=== PATIENT | male | born 1945 | race Caucasian/White ===

== ENCOUNTER 2017-12-19 11:48 | Outpatient (CLI) | payer OTHER, SELFPAY ==
[2017-12-19 13:13] LABS: Anion Gap 7.9 mmol/L (3-11); BUN 17 mg/dL (7-18); CO2 29.1 mmol/L (21.0-32.0); CREATININE 1.01 mg/dL (0.70-1.30); Calcium 8.6 mg/dL (8.5-10.1); Chloride 103 mmol/L (98-107); Glucose 127 mg/dL (70-100); Potassium 4.8 mmol/L (3.5-5.1); Sodium 140 mmol/L (136-145)
[2017-12-19 13:26] LABS: Hemoglobin A1C 6.3 % (4.5-6.2)
== END 2017-12-19 11:49 ==
PROVIDERS: PCP Family Medicine; Visit Provider Family Medicine
DX: E11.9 Type 2 diabetes mellitus without complications (principal)
CPT/HCPCS: 36415; 80048; 83036

== ENCOUNTER 2018-02-02 15:18 | Emergency (ER) | payer MEDICARE, SELFPAY | END 2018-02-02 15:31 | LOC: ER 15:20 | PROVIDERS: Emergency Provider Family Medicine; PCP Family Medicine | DX: Z53.21 Procedure and treatment not carried out due to patient leaving prior to being seen by health care provider (principal) ==

== ENCOUNTER 2018-02-02 18:13 | Outpatient (REF) | payer OTHER, SELFPAY ==
--- NOTE | 2018-02-02 14:09 | SKI_PTH ---
PATIENT: Sai Jaramillo LOC: [facility] U#:[id number] AGE/SX: 72/M ROOM: RE02/02/[address]: Mayo Verdin DO : 1945 BED: DIS: 02/02/2018 SPEC #: [id number] RECD: 02/02/18 18:22 STATUS: NICOLAS REQ #: [id number] KRISSY: 02/02/18 14:[address]: aMyo Verdin DEPT: Surgical Specimen RECD BY: Rosalva Crowley ENTERED: 02/02/18 18:23 SP TYPE: TAWANDA THOMAS DR: Roman Burkett MD Tissues: 1 - SKIN BIOPSY(SHAVE/PUNCH) Procedures: SKIN LEVEL 4 Comments: [id number]
== END 2018-02-02 18:33 ==
LOC: LBN 18:13
PROVIDERS: PCP Family Medicine; Visit Provider Otolaryngology Otolaryngology/Facial Plastic Surgery
DX: C44.41 Basal cell carcinoma of skin of scalp and neck (principal)
CPT/HCPCS: 88305

== ENCOUNTER 2019-01-15 03:50 | Outpatient (CLI) | payer OTHER, SELFPAY ==
[2019-01-15 12:44] LABS: BUN 24 mg/dL (7-18); CREATININE 0.93 mg/dL (0.70-1.30); Calcium 8.4 mg/dL (8.5-10.1); Chloride 105 mmol/L (98-107); Glucose 132 mg/dL (70-100); Potassium 4.5 mmol/L (3.5-5.1); Sodium 140 mmol/L (136-145)
[2019-01-15 13:06] LABS: Hemoglobin A1C 6.6 % (4.5-6.2)
== END 2019-01-15 04:10 ==
PROVIDERS: PCP Family Medicine; Visit Provider Family Medicine
DX: I10 Essential (primary) hypertension (principal); E11.9 Type 2 diabetes mellitus without complications
CPT/HCPCS: 36415; 80048; 83036

== ENCOUNTER 2019-07-05 14:59 | Outpatient (CLI) | payer OTHER, SELFPAY ==
--- NOTE | 2019-07-05 14:45 | DI.RAD_ITS ---
EXAM: XR STANDING ALIGNMENT CLINICAL HISTORY: left knee pain TECHNIQUE: COMPARISON: BONE LENGTH from 08/24/2015 FINDINGS: AP views of the lower extremities were obtained for leg length determination. There slight degenerat genie changes of both hips. There is a total knee joint replacement position the right. There are sev ere degenerative changes involving left knee most prominent involving lateral tibiofemoral joint. IMPRESSION:
--- NOTE | 2019-07-05 14:45 | DI.RAD_ITS ---
EXAM: XR KNEE LT 2V AP,LAT CLINICAL HISTORY: left knee pain TECHNIQUE: COMPARISON: RIGHT KNEE LIMITED 1 OR 2 VIEW from 08/12/2016 FINDINGS: Two views were obtained. There appears to be significant narrowing the cartilaginous joint space of the lateral tibiofemoral joint. There are prominent marginal osteophytes of all 3 joints knee. No o ther significant bony abnormality seen. There is a probable small knee joint effusion. IMPRESSION: DJD most prominent involving lateral tibiofemoral joint.
== END 2019-07-05 15:19 ==
PROVIDERS: PCP Family Medicine; Referring Provider Family Medicine; Visit Provider Student in an Organized Health Care Education/Training Program
DX: M25.562 Pain in left knee (principal); M16.12 Unilateral primary osteoarthritis, left hip; Z96.651 Presence of right artificial knee joint; M17.12 Unilateral primary osteoarthritis, left knee; E11.9 Type 2 diabetes mellitus without complications
CPT/HCPCS: 99213; 73560; 77073

== ENCOUNTER 2019-10-11 02:22 | Outpatient (CLI) | payer OTHER, SELFPAY ==
[2019-10-11 10:58] LABS: HCT 45.8 % (40.0-50.0); HGB 15.9 g/dL (13.5-17.5); Mean Corp. HGB Concentration 34.7 g/dL (32.0-36.0); Mean Corpuscular Hemoglobin 31.6 pg (27.0-33.0); Mean Corpuscular Volume 91.1 fL (80-95); Mean Platelet Volume 9.3 fL (8.0-11.0); Platelet Count 310 x1000/uL (130-400); RBC 5.03 m/cumm (4.50-6.00); RBC Distribution Width 13.2 % (11.8-14.1); White Blood Cell Count 7.76 k/cumm (4.4-10.8)
[2019-10-11 11:17] LABS: Anion Gap 8.8 mmol/L (3-11); BUN 27 mg/dL (7-18); CO2 27.2 mmol/L (21.0-32.0); CREATININE 0.95 mg/dL (0.70-1.30); Calcium 8.6 mg/dL (8.5-10.1); Chloride 101 mmol/L (98-107); Glucose 153 mg/dL (74-106); Potassium 4.4 mmol/L (3.5-5.1); Sodium 137 mmol/L (136-145)
[2019-10-12 18:41] LABS: COVID-19 RT-PCR UVMMC Result Negative (Negative)
== END 2019-10-11 02:42 ==
PROVIDERS: Physician Assistant; PCP Family Medicine; Visit Provider Student in an Organized Health Care Education/Training Program
DX: M25.562 Pain in left knee (principal); M17.12 Unilateral primary osteoarthritis, left knee; E11.9 Type 2 diabetes mellitus without complications; Z11.59 Encounter for screening for other viral diseases; Z01.818 Encounter for other preprocedural examination; Z01.812 Encounter for preprocedural laboratory examination
CPT/HCPCS: 36415; 80048; 85027; U0003; 83036

== ENCOUNTER → 2019-10-13 07:58 | Outpatient (BNVA) | payer OTHER, SELFPAY | PROVIDERS: PCP Family Medicine; Referring Provider Family Medicine; Visit Provider Student in an Organized Health Care Education/Training Program | DX: R69 Illness, unspecified (principal) ==

== ENCOUNTER 2019-10-13 08:47 | Observation (INO) | payer OTHER, SELFPAY ==
[2019-10-13] VITALS (11 sets, daily range): BP systolic 108–158; BP diastolic 58–84; PULSE 53–61; RESP 11–19; TEMP 35.8–36.5; O2SAT 95–100
[2019-10-13] MEDS: Acetaminophen 500 MG TAB 1000 MG PO ×3 (09:35→19:19)
[2019-10-13] MEDS: Celecoxib 200 MG CAP 400 MG PO (09:36)
[2019-10-13] MEDS: Gabapentin 300 MG CAP PO ×2 (09:36→22:13)
[2019-10-13] MEDS: Lactated Ringers 1,000 ML 80 ML IV ×2 (09:45→15:45)
[2019-10-13] MEDS: ceFAZolin 2 GM/50 ML BAG IVPB (10:51)
[2019-10-13] MEDS: Normal Saline 20 ML VIAL (11:29)
[2019-10-13] MEDS: Bupivacaine 0.25% Pres-Free 30 ML VIAL (11:29)
[2019-10-13] MEDS: Ketorolac 30 MG/ML VIAL (11:29)
--- NOTE | 2019-10-13 13:05 | ROE_ITS ---
Date of service: 10/13/19 Time of Service: 13:06 Operative Note Operative Note DATE OF PROCEDURE: 10/13/19 PRE-OP DIAGNOSIS: Left Knee Osteoarthritis POST-OP DIAGNOSIS: same PROCEDURE: Left Total Knee Replacement SURGEON: Yo Orozco SCHEDULE ANALYST: Vin Springer ANESTHESIA: regional and spinal ESTIMATED BLOOD LOSS: 150 PATHOLOGY: none sent TOURNIQUET TIME: 34 COMPLICATIONS: None Patient was transported to: PACU Patient's condition: stable Implants: 1. Depuy Attune Cruciate Retaining Femoral Component, Size 7 2. Depuy Attune Rotating Platform Tibial Component, Size 7 3. Depuy Attune 7x8mm CR,RP Poly 4. Depuy Attune Patellar Component, Size 38mm Indications: I have seen Sai in clinic for symptoms of knee arthritis, confirmed with radiographic findings. Sai has exhausted nonoperative methods and was having significant limitations in daily function and desired better function and less pain. I discussed the technical details of a knee replacement. I explained the risks of the procedure to include, but not limited to, bleeding, infection, pain, stiffness, fracture, damage to nerves and vessels, damage to muscles and tendons, loosening, need for repeat procedure, blood clot and cardiopulmonary demise. Despite these risks, Sai elected to proceed. Findings: There was significant signs of arthritis throughout the knee involving both lateral and medial compartments. Procedure Description: Sai was greeted in the preoperative holding area where the correct side was identified and marked. The consent was reviewed with the patient and signed. The history and physical was updated. All questions were answered. Preoperative mediacations were administered: Acetaminophen 1000mg, Celebrex 400mg, and Gabapentin 300mg. An adductor canal block was then administered by the anesthesia team in the PACU. Sai was taken back to the operating room. A spinal anesthestic was then administered. The patient was placed into the supine position on the operating room table. A nonsterile tourniquet was placed high onto the leg but only used for cementing. Posts were placed for positioning during the procedure. All bony prominences were well padded. Prophylactic antibiotics in the form of Cefazolin were administered. 1g of Tranxemic Acid was given intravenously within 30 minutes of incision. The left leg was then prepped with Chloraprep and draped in a standard fashion with impervious stockinette and extremity drape. A second prep with Chloraprep was performed prior to placing Ioband. A timeout to confirm correct identity, side and site, procedure, allergies, anesthesia, and medical concerns was performed. With the knee in some flexion, a midline incision was made overlying the knee. Full thickness skin flaps were raised once the extensor mechanism was encountered. These were raised medially and laterally. Any bleeding was controlled with electrocautery. Once the extensor mechanism was fully exposed, a medial parapatellar arthrotomy was performed in a flexed position. All bleeding from the arthrotomy and the geniculate arteries was coagulated. A medial subperiosteal peel was performed with electrocautery to the midcoronal plane. The fat pad was removed while keeping the patellar tendon protected. The anterior distal femur synovium was removed for later visualization. The ACL and PCL were resected and the anterior horn of the lateral meniscus was transected. The knee was then flexed with the patella everted. Large osteophytes from the tibia were removed. Large osteophytes from the femur were removed. Using a step drill, and based on preoperative templating, the femoral canal was entered. This was done with a step drill without any difficulty. The intramedullary distal femoral cut guide was inserted, set to a 4 degree valgus cut and 9mm cut thickness. There was some hypoplasia of the lateral femoral condyle and any remnant cartilage of the medial femoral condyle was removed for appropriate thickness. The distal femoral cut guide was then held in position and pinned. With the soft tissues protected, the distal cut was performed. This was passed over a few times to ensure a planar cut. I then turned attention to the tibia. The extramedullary guide was placed onto the leg. The distal aspect was slid medial to adjust for position of center of ankle and stay in line with shaft of the tibia. Approximately 7 degrees of posterior slope was kept in the proximal cutting guide. The center of the guide was aligned with the PCL. The stylus was used to assess cut thickness. The cut was balanced and set for 7mm. This was then held in position and pinned into place with 2 additional pins and a cross pin for stability. The medial and lateral collateral ligaments were protected and the cut was performed. With this completed, it was assessed and noted to be of appropriate dimensions. The guide was removed. A spacer block was inserted and the knee was brought into extension. The 8mm spacer block provided full extension, without hyperextension and with stability of both the medial and lateral collateral ligaments was assessed. The pins from the femur and the tibia were then removed. The distal femur was then sized. The anterior stylus was placed onto the lateral ridge of the anterior femur. This indicated a size 7 femur. The external rotation of the guide was adjusted to 3 degrees to match the epicondylar axis, perpendicular to [place]?s line. The 4-in-1 cutting guide was the placed. The posterior medial femur cut was evaluated and appeared of good thickness. The spacer block was inserted underneath the cutting guide and stability was confirmed in 90 degrees of flexion. An danyelle wing was used to confirm appropriate position of the anterior cut to avoid notching. This cutting guide was ensured to be flush on the cut surface and then pinned into place with headed pins. While protecting the soft tissues, quad tendon, and collateral ligaments, the anterior and posterior cuts were performed with a saw. The central two pins were removed and the posterior and anterior chamfers were cut next. The notch-cutting guide was placed. This was pinned to lateralize the femoral component as much as possible while keeping it flush on the cut surface. This was then pinned into position. A reciprocating saw was used to make the small notch cut. A trial CR femoral component was then inserted, impacted down to the cut surfaces, and the lug holes were drilled. A provisional trial tibial component was placed and the knee was brought through range of motion. There was noted to be excellent extension and flexion. There was no significant instability. The patella was tracking without thumbs. The tibial cut surface was fully exposed. The medial and lateral menisci were removed. The tibia was then sized as a 7. The tibia had been previously marked during trialing to correspond to the center of the tibial component to help with rotation. The trial was aligned to this vin, approximately rotated to the medial 1/3rd of the tibial tubercle. The trial was pinned into place. The tibia was prepared with a reamer and a keel punch. The knee was then brought into extension and the patella was measured as 30mm. Using the patellar clamp and cut guide, this was resected to a flat surface with at least 13mm of thickness remaining. The size 38 patella fit the best. This was oriented and then clamped into position. The lugs were drilled. The trial components were removed. The final components, except for the polyethylene were opened on the back table. The periosteal and capsular tissues, especially posteriorly, around the knee were then systematically injected with a periarticular cocktail consisting of 50cc 0.25% Marcaine, 30mg Ketorolac, 20cc of Exparal and 50cc of injectable saline. The tourniquet was then inflated to 275mmHg. The knee was thoroughly irrigated with a pulse lavage and dried. On the back table, with the implants opened, the cement was mixed. 2 batches of antibiotic laden cement were prepared with vacuum assistance. After the cement was ready it was placed on to the back side of the tibial component. A small amount was placed onto the posterior flange of the femur. Cement was manual pressurized and impregnated into the cut surface of the tibia. The tibial component was then inserted into the cut surface and impacted into position. Excess cement was removed and the component was reimpacted. Again, excess cement was removed and our attention was then turned to the femur. The femoral cut surface was once again dried and cement was manually impacted into the cut surface. The femoral component was lined with the lug holes and impacted. Excess cement was removed. It was ensured to be down against the cut surface. The trial polyethylene was then inserted and the leg was brought out into full extension for the duration of the cement curing process, approximately 15min. Cement was lastly manually impacted into the cut surface of the patella and the patellar button was clamped into position and held. During this process attention was turned to the gutters of the knee and for all interfaces for any excess cement. While the cement was hardening, the knee was irrigated with Irrisept chlorhexadine solution. It was allowed to sit in the knee for 3 minutes. After the cement had finally cured, approximately 15min, the clamp was removed from the patella and the knee was taken through range of motion. A size 8mm polyethylene component provided the best range of motion and stability with less than 2mm gapping with medial and lateral stress and full extension without significant hyperextension. The patella was tracking with a no-thumbs technique. The trial poly was removed and once again the knee was checked for any loose, excess, or errant cement. The poly component was then inserted into position after cleaning and drying the tibial tray. The capsule was then reapproximated with a No. 1 Vicryl at multiple locations. The capsule was finally closed with a No. 2 Stratafix, barbed suture. The tourniquet was then released and the arthrotomy appeared watertight without significant bleeding. The second dosing of 1g TXA was started. Deep tissues were then reapproximated with 0 Vicryl and 2-0 Vicryl. The skin was closed with a running 3-0 Monocryl in a subcuticular fashion. This was reinforced with skin glue. A Mepilex silver dressing was applied along with a [id number] STEVE wrap. A CryoCuff was applied. Sai was transferred to the hospital bed without difficulty an suffering no apparent complication. Sai has a good prognosis. Physical therapy will start today and without restrictions, weight-bearing as tolerated. Aspirin 81mg BID will be used for DVT prophylaxis.
--- NOTE | 2019-10-13 14:10 | IN_ITS ---
Date of service: 10/13/19 PT Notes Visit Reasons: Left Knee DJD Physical Therapy Inpatient Initial Evaluation Date: 10/13/2019 Referring Doctor: Yo Orozco MD PT Orders: PT CONSULT: Status post Ortho surgery. Status post left TKA Precautions: Fall. Standard. WBAT on left LE. Patient Profile/Admitting Diagnosis: Sai is a 73-year-old male with primary unilateral osteoarthritis of the left knee and is status post left total knee arthroplasty on postoperative day 0. PMHX: Medical History Malignant melanoma of skin (Inactive 10/09/08) Osteoarthritis Prediabetes Primary osteoarthritis of left knee (Chronic) Primary osteoarthritis of right knee (Inactive 01/26/15) Status post knee replacement Smoker (Inactive) Surgical History S/P total knee arthroplasty (Inactive) Status post vasectomy (Inactive) Vasectomy Social History/Home Situation: Patient lives with in a ranch style home with 3 steps to enter through the garage with a railing on one side. Independent with all aspects of ADLs prior to surgery. Equipment Owned/DME: Front wheeled walker Subjective: Patient states that his will be a very good support for him once he goes home to recover. He expresses that he believes he is going to do well at home as long as he has a front-wheeled walker to hold onto. He reports 1/10 pain in the left knee especially with weight bearing. He denies headache, chest pain, and dizziness throughout PT session. He states he has not fallen in the past 12 months. He stresses that he had his right knee done 4 years ago and is familiar with the surgical protocol. Objective: General Observation: IV in the left UE. TEDS on right leg. Anti-thromboembolic pump on the right leg. Maximiliano wraps on left knee. Mental Status: Alert and oriented x4 Pain: 1/10 in the right knee Vital Signs: Within normal limits as closely monitored by nursing staff during and after PT session. Normal ROM: Right Upper Extremity: Shoulder Flexion WFL. Shoulder abduction WFL. Elbow flexion WFL. Wrist flexion WFL. Opening and closing of hand WFL. Left Upper Extremity: Shoulder Flexion WFL. Shoulder abduction WFL. Elbow flexion WFL. Wrist flexion WFL. Opening and closing of hand WFL. Right Lower Extremity: Hip flexion WFL. Hip abduction WFL. Knee flexion WFL. Ankle dorsiflexion WFL. Ankle plantarflexion WFL. Left Lower Extremity: Hip flexion WFL. Hip abduction WFL. Knee flexion -30 degrees to 100 degrees. Knee extension -30 degrees. Ankle dorsiflexion WFL. Ankle plantarflexion WFL. Patient able to do 10 SLRs to 45 degrees on the left side without undue difficulty. Strength: Right Upper Extremity: Shoulder flexors 5/5. Shoulder abductors 5/5. Elbow flexors 5/5. Elbow extensors 5/5. Environmental Remediation Specialist strong. Left Upper Extremity: Shoulder flexors 5/5. Shoulder abductors 5/5. Elbow flexors 5/5. Elbow extensors 5/5. Environmental Remediation Specialist strong. Right Lower Extremity: Hip flexors 5/5. Hip abductors 5/5. Knee flexors 5/5. Knee extensors 5/5. Ankle dorsiflexors 5/5. Ankle plantarflexors 5/5. Left Lower Extremity:Hip flexors 4/5. Hip abductors 4-/5. Knee flexors 3-/5. Knee extensors 3-/5. Ankle dorsiflexors 5/5. Ankle plantarflexors 5/5. Sensation: Intact as to pain and pressure on bilateral lower extremities. Bed Mobility/Transfers: Supine to sit modified independent using BUE for support Sit to supine modified independent using BUE for support Sit to stand supervision with minimal verbal cueing for hand placement, requires use of front wheel walker Stand to sit supervision with minimal verbal cueing for hand placement Bed to chair supervision with minimal verbal cueing for hand placement, requires use of front wheel walker Chair to bed supervision with minimal verbal cueing for hand placement, requires use of front wheel walker Gait: Patient tolerated level surface ambulation of 200 feet + 70 feet using front wheeled walker with standby assist. Swing through gait pattern seen. Patient also tolerated up-and-down 6 x 4-inch steps and four 6-inch steps while holding onto one rail with standby assist with tolerable pain level in the left knee. Balance: Static Sitting: Normal Dynamic Sitting: Normal Static Standing: Fair Dynamic Standing: Fair Special Tests: Mobility Limitations Standardized Measure [facility]-PAC 6 clicks Basic Mobility Inpatient Short Form: Raw Score: 23 CMS Score: 11% deficit Informed Consent/Education: Patient instructed in purpose of PT consult and plan of care. Assessment: Patient demonstrates a need for a front wheel walker for all mobility ADL performance, impairment in balance, difficulty with walking unassisted, and range of motion deficits resulting from postoperative status. He however does not need physical assist for all mobility ADL performance and will have the support of his at all times. Patient is motivated to return to prior level of function and is confident to return home today when cleared by orthopedic surgeon. Patient presents with clinical signs and symptoms consistent with current/admitting diagnoses that have resulted to mobility limitations, gait instability, generalized weakness, and impairment of motor control as demonstrated by the following impairment level findings: 1. Decreased strength to left knee major muscle groups 2. Impaired standing balance 3. Impaired activity tolerance 4. Limitation of joint range of motion in left knee Impairments are contributing to the following functional limitations: 1. Inability to safely ambulate without assistive device and physical assistance 2. Increase completion time for mobility ADL performance 3. Increased fall risk 4. Inability to negotiate steps alone safely Patient is assessed as a 41960 moderate complexity based on the following: History: 73-year-old with impairment level findings, functional limitations, and past medical history as indicated above Examination: Demonstrable impairment in strength, balance, and mobility level with underlying impairments and functional limitations as documented above Presentation:Evolving Decision Makin complexity Goals: Goals X1 day 1. Supine-Sit independent 2. Sit-Supine independent 3. Sit-Stand independent 4. Stand-Sit independent 5. Bed-Chair independent 6. Chair-Bed independent 7. Supervision gait on level surface with use of least restrictive device for at least 300 feet without report of pain nor dyspnea 8. Supervision stair negotiation while holding onto bilateral rails for at least 10 steps without report of pain nor dyspnea 9. Independent with home exercise program 10. Good static and dynamic standing balance/tolerance Plan of Care/Treatment Plan: 1-2x/day, x day. Plan of care has been reviewed with the NEWS LIBRARY DIRECTOR providing the service under Physical Therapy direction. Initiate Physical Therapy intervention for strengthening, bed mobility, transfers, gait, stairs, balance training, use of assistive device. PT Intervention: Session today consisted of initial physical therapy evaluation and education/training on safe strategies for mobility ADL performance using the front wheeled walker. DISCHARGE RECOMMENDATIONS: Home when medically cleared by orthopedic surgeon. No equipment needs at this time. TREATMENT CODE/TIME: 96396 x 30 minutes beginning at 2:15 PM, [id number] x 28 minutes beginning at 15:01 PM. Thank you very much for this referral. Edwina Mcclure PT, DPT, CLT [facility] [place], [place]
--- NOTE | 2019-10-13 14:26 | NUR.NOTE ---
Nursing Note: Pt A&Ox3, VSS, denies pain. CMST's in LLE WNL. feet cool, aware. Palpable pulse. Pt states he hungry. Coffee given, no void yet. Will continue to monitor.
[2019-10-13] MEDS: ceFAZolin 1 GM/50 ML BAG IVPB (17:51)
[2019-10-13] MEDS: Omeprazole 10 MG CAPCR PO (19:20)
[2019-10-13] MEDS: Celecoxib 200 MG CAP PO (19:20)
[2019-10-13] MEDS: Aspirin E.C. 81 MG TABEC PO (19:20)
[2019-10-14 00:45] VITALS: BP 152/81; PULSE 58; RESP 12; TEMP 35.3; O2SAT 96
[2019-10-14 00:46] VITALS: BP 144/81
[2019-10-14] MEDS: ceFAZolin 1 GM/50 ML BAG IVPB ×2 (01:01→10:15)
[2019-10-14] MEDS: Lactated Ringers 1,000 ML 80 ML IV (03:20)
[2019-10-14 03:27] VITALS: BP 138/76; PULSE 60; RESP 14; TEMP 35.8; O2SAT 97
[2019-10-14 07:34] VITALS: BP 138/75; PULSE 69; RESP 17; TEMP 36.8; O2SAT 96
--- NOTE | 2019-10-14 07:38 | W.PM.DS.N ---
Date of service: 10/14/19 Time of Service: 07:37 DS: Diagnosis Discharge Diagnosis (1) Primary osteoarthritis of left knee: Status: Chronic Discharge Plan Disposition Patient Disposition: HOME Condition: Good Discharge Details Reason For Visit: Left Knee DJD Admit Date/Time: 10/13/19 08:47 Admit Provider: Yo Orozco Attending Provider: Yo Orozco Primary Care Provider: Roman Burkett Hospital Course Hospital Course: Patient was admitted to the medical/surgical floor following the procedure. The surgery was tolerated well without any notable medical, surgical, or anesthetic complications. Mobilization began postoperatively. He was voiding spontaneously. Vitals were stable. Physical therapy worked with the patient and was cleared for discharge home. No acute medical issues. Pain was controlled on oral regimen. Home Meds and New Rx's Prescriptions: New celecoxib 200 mg capsule 200 mg PO BID PRN (Reason: pain) Qty: 60 RF: 1 aspirin 81 mg tablet,delayed release (DR/EC) 81 mg PO BID Qty: 60 RF: 0 acetaminophen 500 mg tablet 1,000 mg PO Q8H PRN (Reason: pain) Qty: 90 RF: 3 gabapentin 300 mg capsule 300 mg PO QHS Qty: 7 RF: 0 oxycodone 5 mg tablet 5 mg PO Q4H Qty: 15 RF: 0 Continued multivitamin 1 EACH tablet 1 ea PO DAILY RF: 0 ascorbic acid (vitamin C) 250 MG tablet 750 mg PO DAILY RF: 0 garlic 1 EACH capsule 1 ea PO DAILY RF: 0 omeprazole magnesium [Prilosec OTC] 20 MG tablet,delayed release (DR/EC) 0.5 tab PO QPM Qty: 90 RF: 4 Discontinued aspirin 81 MG tablet,delayed release (DR/EC) 81 mg PO DAILY RF: 0 naproxen sodium [Aleve] 220 mg capsule 220 mg PO DAILY RF: 0 Discharge Instructions Additional Instructions: Dr. Orozco?s Total Knee Discharge Instructions Activity: The most important activity is to walk. You should try to take short walks a few times a day. It is important that when resting you work on keeping the knee straight. Avoid putting a pillow behind the knee as this will encourage flexion. Work on range of motion exercises as provided by Physical Therapy and the preoperative booklet. - Start outpatient physical therapy within 2 weeks. - You should wear the ROMULO hose on both legs for 2 weeks. Dressing: Keep the surgical dressing (Mepilex) in place for at least one week. If you went home on the surgical day, you should remove the STEVE wrap on the second day and then apply the ROMULO hose. The dressing may get wet after 3 days but avoid soaking the dressing. If it gets wet, just lightly pat dry. Most patient prefer to cover with ClingWrap or Saran Wrap to keep the dressing dry. After the first week, the dressing may be removed and replaced with light gauze and tape or nothing. Medications: - You should take Tylenol and anti-inflammatory Celebrex as your primary pain control medications - You have been prescribed a stronger pain medication Oxycodone for breakthrough pain, take as needed as prescribed. - You should continue to take your Omeprazole to help reduce stomach acid and reflux. - You will be taking Aspirin 81mg twice a day for DVT prevention unless instructed otherwise. - If you have constipation you should take Colace or Miralax (both [id number]). It takes most people 3-4 days to have a bowel movement. Follow-up: 2 weeks. You should also call physical therapy to work on scheduling outpatient therapy sessions which can begin at 2 weeks. If you have any acute concerns or questions, please do not hesitate to contact the office at [phone]. You may contact Dr. Orozco with any questions after hours through the hospital at [phone] or on his cell phone at [phone]. Referrals: Yo Orozco MD [ [facility] STAFF PHYSICIAN] - 10/29/19 11:30 am Activity:: Activity as Tolerated Equipment/Supplies:: Walker Diet:: As Tolerated Discharge Orders Discharge Orders: Discharge Order (Routine); Ordered 10/14/19 Ordered By: Yo Oorzco DS: Summary Status at Discharge Functional status at discharge: uses cane/walker Overall status at discharge: patient is progressing back to baseline Mental Status: mental status grossly normal Speech and Movement: speech and movement normal Mood: congruent mood Affect: normal affect Exam Narrative Exam Narrative: Resting in the hospital bed. Dressing is clean dry and intact. He is holding the knee in about 10 degrees of flexion. Passively I can get him to about 5 degrees of extension and he flexes to about 80 degrees. He is able to actively contract the quad and perform a straight leg raise although with a lag. Sensation intact light touch over the deep and superficial peroneal nerves and tibial nerve. The foot is warm and well-perfused with capillary refill less than 2 seconds. Psych Mental Status: mental status grossly normal Speech and Movement: speech and movement normal Mood: congruent mood Affect: normal affect DS: Data Vitals/I&O Vitals and I&O: Vital Signs Temperature 36.3 C L 10/13/19 13:44 Pulse 59 L 10/13/19 13:44 Pulse Rhythm Regular 10/13/19 09:08 Respiratory Rate 16 10/13/19 13:44 Respiratory Effort 10/13/19 09:08 Respiratory Depth Normal 10/13/19 09:08 Blood Pressure 122/65 10/13/19 13:44 Pulse Oximetry 100 10/13/19 13:44 Oxygen Delivery Method Room Air 10/13/19 13:44 Oxygen Flow Rate 0 10/13/19 09:08 Pain Level 0 10/13/19 13:44 Intake & Output 10/12/19 10/13/19 10/13/19 23:59 11:59 23:59 Intake Total 110 / 1370 1260 / 1370 Output Total 150 / 150 Balance 110 / 1220 1110 / 1220 Weight 101.6 kg Intake: IV 110 / 970 860 / 970 Oral 400 / 400 Output: Estimated Blood Loss 150 / 150 Other: Emesis Description None PFSH Medical History Malignant melanoma of skin (Inactive 10/09/08) Osteoarthritis Prediabetes Primary osteoarthritis of left knee (Chronic) s/p TKA (10/13/19) Primary osteoarthritis of right knee (Inactive 01/26/15) Status post knee replacement Smoker (Inactive) Surgical History S/P total knee arthroplasty (Inactive) Status post vasectomy (Inactive) Vasectomy Family History Mother , 80 Stroke Father , 64 Diabetes Sister Multiple myeloma Maternal Grandfather , 56 Essential hypertension Heart disease Paternal Grandfather , 50 Diabetes Maternal Grandmother , 99 Heart disease Paternal Grandmother , 70+ Diabetes Dementia Daughter No problems noted. Daughter No problems noted. Social History Smoking/Tobacco Use Status: Current-Occasional Alcohol Intake: current Alcohol Intake frequency: a few times a week Alcohol type: beer and wine Drug use: Never Substance use type: does not use Caregiver/Support person: No Household members: spouse Communication Needs: None Pets and animals: No Sexually active: Yes Current gender identity: male What is your relationship status?: How often do you talk on the phone with friends or family?: once per week How often do you get together with friends or relatives?: once per week How often do you attend shinto or lutheran services?: decline to answer Do you belong to any clubs or organized social groups?: yes Panel score (0-1 are the most socially isolated patients): 2 What type of physical activity do you participate in: swimming Duration: 45-60 minutes/day Frequency: 3-4 times per week Patti/Adventist: Worship Special patti needs: No Seatbelt use: always Drive intox or ride w/intox transport truck driver: No Do you feel safe at home: Yes Do you feel safe in your relationship?: Yes
[2019-10-14] MEDS: Multivitamin TAB 1 TAB PO (08:01)
[2019-10-14] MEDS: Celecoxib 200 MG CAP PO (08:01)
[2019-10-14] MEDS: Acetaminophen 500 MG TAB 1000 MG PO (08:01)
[2019-10-14] MEDS: Aspirin E.C. 81 MG TABEC PO (08:01)
[2019-10-14] MEDS: Ascorbic Acid 500 MG TAB 750 MG PO (08:01)
--- NOTE | 2019-10-14 09:16 | INDS_ITS ---
Date of service: 10/14/19 Time of Service: 08:37 PT Notes Visit Reasons: Left Knee DJD Physical Therapy Inpatient Discharge Summary Date: 10/14/2019 Dates of service: 10/13/2019 and 10/14/2019 Referring Doctor: Yo Orozco MD PT Orders: PT CONSULT: Status post Ortho surgery. Status post left TKA Precautions: Fall. Standard. WBAT on left LE. Patient Profile/Admitting Diagnosis: Sai is a 73-year-old male with primary unilateral osteoarthritis of the left knee and is status post left total knee arthroplasty on postoperative day 1. PMHX: Medical History Malignant melanoma of skin (Inactive 10/09/08) Osteoarthritis Prediabetes Primary osteoarthritis of left knee (Chronic) Primary osteoarthritis of right knee (Inactive 01/26/15) Status post knee replacement Smoker (Inactive) Surgical History S/P total knee arthroplasty (Inactive) Status post vasectomy (Inactive) Vasectomy Social History/Home Situation: Patient lives with in a ranch style home with 3 steps to enter through the garage with a railing on one side. Independent with all aspects of ADLs prior to surgery. Equipment Owned/DME: Front wheeled walker Subjective: Objective: General Observation: IV in the left UE. TEDS on right leg. Anti-thromboembolic pump on the right leg. Maximiliano wraps on left knee. Mental Status: Alert and oriented x4 Pain: 1/10 in the right knee ROM: Right Upper Extremity: Shoulder Flexion WFL. Shoulder abduction WFL. Elbow flexion WFL. Wrist flexion WFL. Opening and closing of hand WFL. Left Upper Extremity: Shoulder Flexion WFL. Shoulder abduction WFL. Elbow flexion WFL. Wrist flexion WFL. Opening and closing of hand WFL. Right Lower Extremity: Hip flexion WFL. Hip abduction WFL. Knee flexion WFL. Ankle dorsiflexion WFL. Ankle plantarflexion WFL. Left Lower Extremity: Hip flexion WFL. Hip abduction WFL. Knee flexion -20 degrees to 100 degrees. Knee extension -30 degrees. Ankle dorsiflexion WFL. Ankle plantarflexion WFL. Patient able to do 10 SLRs to 45 degrees on the left side without undue difficulty. Strength: Right Upper Extremity: Shoulder flexors 5/5. Shoulder abductors 5/5. Elbow flexors 5/5. Elbow extensors 5/5. 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 Left Upper Extremity: Shoulder flexors 5/5. Shoulder abductors 5/5. Elbow flexors 5/5. Elbow extensors 5/5. 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 Right Lower Extremity: Hip flexors 5/5. Hip abductors 5/5. Knee flexors 5/5. Knee extensors 5/5. Ankle dorsiflexors 5/5. Ankle plantarflexors 5/5. Left Lower Extremity:Hip flexors 4/5. Hip abductors 4-/5. Knee flexors 3-/5. Knee extensors 3-/5. Ankle dorsiflexors 5/5. Ankle plantarflexors 5/5. Sensation: Intact as to pain and pressure on bilateral lower extremities. Bed Mobility/Transfers: Supine to sit modified independent using BUE for support Sit to supine modified independent using BUE for support Sit to stand modified independent, requires use of front wheel walker Stand to sit modified independent, requires use of front wheel walker Bed to chair modified independent, requires use of front wheel walker Chair to bed modified independent, requires use of front wheel walker Gait: Patient tolerated level surface ambulation of 520 feet + 70 feet using front wheeled walker with supervision. Swing through gait pattern seen. Step height increase. Patient also tolerated up-and-down 12 x 4-inch steps and 8 x 6-inch steps while holding onto one rail with supervision with tolerable pain level in the left knee. THERA EX: Patient tolerated seated level exercises consisting of long arc quads x10 and seated marches x10 followed by standing level exercises consisting of bilateral heel raises x10 help provide 5 pounds each time and anytime marches x10 without undue difficulty with minimal discomfort on the left knee. Cryo/Cuff replaced on left knee to minimize post exercise soreness. Balance: Static Sitting: Normal Dynamic Sitting: Normal Static Standing: Fair Dynamic Standing: Fair Assessment: Patient demonstrates a need for a front wheel walker for all mobility ADL performance, impairment in balance, difficulty with walking unassisted, and range of motion deficits resulting from postoperative status. He however does not need physical assist for all mobility ADL performance and will have the support of his at all times. Patient has been provided with a written and illustrated list of exercises that he can do while recovering at home. Patient continues to present with clinical signs and symptoms consistent with current/admitting diagnoses that have resulted to mobility limitations, gait instability, generalized weakness, and impairment of motor control as demonstrated by the following impairment level findings: 1. Decreased strength to left knee major muscle groups 2. Impaired standing balance 3. Impaired activity tolerance 4. Limitation of joint range of motion in left knee with residual stiffness Impairments continue to contribute to the following functional limitations: 1. Inability to safely ambulate without assistive device and physical assistance 2. Increase completion time for mobility ADL performance Goals: Goals X1 day 1. Supine-Sit independent MET 2. Sit-Supine independent MET 3. Sit-Stand independent MET 4. Stand-Sit independent MET 5. Bed-Chair independent MET 6. Chair-Bed independent MET 7. Supervision gait on level surface with use of least restrictive device for at least 300 feet without report of pain nor dyspnea MET 8. Supervision stair negotiation while holding onto bilateral rails for at least 10 steps without report of pain nor dyspnea MET 9. Independent with home exercise program MET 10. Good static and dynamic standing balance/tolerance MET DISCHARGE RECOMMENDATIONS: Home when medically cleared by orthopedic surgeon. No equipment needs at this time. Patient needs current status per orthopedic surgeon recommendation. TREATMENT CODE/TIME: 74189 x15 minutes, 9711 0 x 15 minutes, beginning at 8:37 AM. Thank you very much for this referral. Edwina Mcclure PT, DPT, CLT [facility] [place], [place]
--- NOTE | 2019-10-14 15:07 | CHAPLAIN ---
Sai was in the recliner when I visited. He told me about his surgery. This is his second knee surgery. He was raised Druze and then attended Shinto Churches. He has a sister who is a Yazidism. His attended a [employer]. 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 Sai easily engaged in a conversation, shared some personal history and talked about his home in [place].
== END 2019-10-14 12:26 | disposition home or self-care (01) ==
LOC: PDS 13:35 → MS 13:36
PROVIDERS: Admitting Provider Student in an Organized Health Care Education/Training Program; PCP Family Medicine; Visit Provider Student in an Organized Health Care Education/Training Program
PROC: 0SRD0J9 Replacement of Left Knee Joint with Synthetic Substitute, Cemented, Open Approach (ICD-10-PCS; CPT 27447; principal; 2019-10-13 11:45)
DX: M17.12 Unilateral primary osteoarthritis, left knee (principal); M25.562 Pain in left knee; Z96.652 Presence of left artificial knee joint; G89.18 Other acute postprocedural pain; R73.03 Prediabetes; R12 Heartburn
CPT/HCPCS: 27447; C1776; 76942; 97110; 97162; 97530; NC; G0378; J0690; J1885; J2370; J2405

== ENCOUNTER 2019-10-29 11:56 | Outpatient (CLI) | payer OTHER, SELFPAY ==
--- NOTE | 2019-10-29 11:30 | DI.RAD_ITS ---
EXAM: XR KNEE LT 1V CLINICAL HISTORY: 1ST POST OP. TECHNIQUE: 2D digital imaging was performed. COMPARISON: CR XR STANDING ALIGNMENT from 07/05/2019 CR XR KNEE LT 2V AP,LAT from 07/05/2019 CR XR STANDING ALIGNMENT from 10/29/2019 FINDINGS: There are bilateral total knee prostheses. The components appear well aligned. There are no abnorma l bony lucencies. The hip joint spaces are well maintained. There is no significant leg length disc repancy. There is some narrowing of the medial tibiotalar joint spaces. IMPRESSION: Unremarkable bilateral total knee prostheses. No significant leg length discrepancy. DATA REPOSITORY: RADIATION DOSE DELIVERED:
== END 2019-10-29 12:16 ==
PROVIDERS: PCP Family Medicine; Referring Provider Family Medicine; Visit Provider Student in an Organized Health Care Education/Training Program
DX: Z96.653 Presence of artificial knee joint, bilateral (principal); Z47.1 Aftercare following joint replacement surgery
CPT/HCPCS: 73560; 77073

== ENCOUNTER → 2019-11-26 10:45 | Outpatient (BNVA) | payer OTHER, SELFPAY | PROVIDERS: PCP Family Medicine; Referring Provider Family Medicine; Visit Provider Student in an Organized Health Care Education/Training Program | DX: Z96.652 Presence of left artificial knee joint (principal); Z47.1 Aftercare following joint replacement surgery ==

== ENCOUNTER 2020-01-05 03:36 | Outpatient (CLI) | payer OTHER, SELFPAY ==
[2020-01-05 13:35] LABS: Calculated LDL 95 mg/dL (<100); Cholesterol 161 mg/dL (<200); HDL Cholesterol 33 mg/dL (40-60); Triglyceride 168 mg/dL (<150)
== END 2020-01-05 03:56 ==
PROVIDERS: PCP Nurse Practitioner Family; Visit Provider Family Medicine
DX: E11.9 Type 2 diabetes mellitus without complications (principal)
CPT/HCPCS: 36415; 80061

== ENCOUNTER 2020-10-20 11:26 | Outpatient (CLI) | payer OTHER, SELFPAY ==
--- NOTE | 2020-10-20 11:00 | DI.RAD_ITS ---
Exam(s) XR KNEE LT 2V AP,LAT EXAM: XR KNEE LT 2V AP,LAT INDICATION: annual f/u L TKA. COMPARISON: CR XR KNEE LT 1V from 10/29/2019 TECHNIQUE: 2D digital imaging was performed. FINDINGS: There has been no change in the left total knee prosthesis. There no of the abnormal bony lucencies. DATA REPOSITORY: RADIATION DOSE DELIVERED:
== END 2020-10-20 11:27 | disposition home or self-care (01) ==
LOC: DIORS 11:27
PROVIDERS: PCP Nurse Practitioner Family; Referring Provider Nurse Practitioner Family; Visit Provider Student in an Organized Health Care Education/Training Program
DX: Z47.1 Aftercare following joint replacement surgery (principal); Z96.652 Presence of left artificial knee joint
CPT/HCPCS: 99213; 73560

== ENCOUNTER 2021-01-09 03:21 | Outpatient (CLI) | payer OTHER, SELFPAY ==
[2021-01-09 12:48] LABS: Anion Gap 11.5 mmol/L (3-11); BUN 14 mg/dL (7-18); CO2 24.5 mmol/L (21.0-32.0); Calcium 8.6 mg/dL (8.5-10.1); Calculated LDL 103 mg/dL (<100); Chloride 104 mmol/L (98-107); Cholesterol 174 mg/dL (<200); Glucose 159 mg/dL (74-106); HDL Cholesterol 36 mg/dL (40-60); Potassium 4.2 mmol/L (3.5-5.1); Sodium 140 mmol/L (136-145); Triglyceride 179 mg/dL (<150)
[2021-01-09 23:01] LABS: PSA, Screening 2.9 ng/mL (0.0-6.5)
== END 2021-01-09 03:22 | disposition home or self-care (01) ==
LOC: LBO 03:21
PROVIDERS: PCP Nurse Practitioner Family; Visit Provider Nurse Practitioner Family
DX: E11.9 Type 2 diabetes mellitus without complications (principal); Z12.5 Encounter for screening for malignant neoplasm of prostate
CPT/HCPCS: 36415; 80048; 80061; 84153

== ENCOUNTER 2021-08-03 03:49 | Outpatient (CLI) | payer MEDICARE, SELFPAY ==
[2021-08-03 14:21] LABS: Anion Gap 10.6 mmol/L (3-11); BUN 17 mg/dL (7-18); CO2 23.4 mmol/L (21.0-32.0); Calcium 8.7 mg/dL (8.5-10.1); Chloride 106 mmol/L (98-107); Glucose 131 mg/dL (74-106); Potassium 4.4 mmol/L (3.5-5.1); Sodium 140 mmol/L (136-145)
== END 2021-08-03 03:50 | disposition home or self-care (01) ==
LOC: LBO 03:49
PROVIDERS: PCP Nurse Practitioner Family; Visit Provider Nurse Practitioner Family
DX: E11.9 Type 2 diabetes mellitus without complications (principal)
CPT/HCPCS: 36415; 80048

== ENCOUNTER 2021-12-27 04:09 | Outpatient (CLI) | payer MEDICARE, SELFPAY ==
[2021-12-27 14:17] LABS: Hemoglobin A1C 5.8 % (<5.7)
== END 2021-12-27 04:10 | disposition home or self-care (01) ==
LOC: LOS 04:09
PROVIDERS: PCP Nurse Practitioner Family; Visit Provider Nurse Practitioner Family
DX: E11.9 Type 2 diabetes mellitus without complications (principal)
CPT/HCPCS: 36415; 83036

== ENCOUNTER 2022-08-08 11:35 | Outpatient (CLI) | payer MEDICARE, SELFPAY ==
[2022-08-08 12:53] LABS: Anion Gap 6.6 mmol/L (3-11); BUN 22 mg/dL (7-18); CO2 31.4 mmol/L (21.0-32.0); CREATININE 0.9 mg/dL (0.70-1.30); Calcium 9.1 mg/dL (8.5-10.1); Calculated LDL 99 mg/dL (<100); Chloride 103 mmol/L (98-107); Cholesterol 177 mg/dL (<200); Estimated GFR 87.42 (mL/min/1.73m2); Glucose 139 mg/dL (74-106); HDL Cholesterol 44 mg/dL (40-60); Potassium 4.2 mmol/L (3.5-5.1); Sodium 141 mmol/L (136-145); Triglyceride 171 mg/dL (<150)
[2022-08-09 20:24] LABS: PSA, Screening 3.3 ng/mL (<=6.5)
== END 2022-08-08 11:36 | disposition home or self-care (01) ==
LOC: LOS 11:36
PROVIDERS: PCP Nurse Practitioner Family; Referring Provider Nurse Practitioner Family; Visit Provider Nurse Practitioner Family
DX: R73.03 Prediabetes (principal); E66.9 Obesity, unspecified; Z12.5 Encounter for screening for malignant neoplasm of prostate
CPT/HCPCS: 36415; 80048; 80061; 84153

== ENCOUNTER 2023-03-06 14:27 | Outpatient (CLI) | payer MEDICARE, SELFPAY ==
--- NOTE | 2023-03-06 14:30 | RT.EKG_ITS ---
APPROVED REPORT Exam: Resting ECG Reason for Exam: [facility] Patient Location: O HR:73 bpm ECG Measurements Heart Rate 73 AXIS PA 191 P 60 QRSd 162 QRS -38 QT 435 T 119 QTc 480 Conclusion Sinus rhythm...normal P axis, V-rate 50- 99 Probable left atrial enlargement...P >50mS, <-0.10mV V1 Left bundle branch block...QRSd>120, broad/notched R
== END 2023-03-06 14:28 | disposition home or self-care (01) ==
PROVIDERS: PCP Nurse Practitioner Family; Visit Provider Physician Assistant
DX: R07.89 Other chest pain (principal); R55 Syncope and collapse
CPT/HCPCS: 93010

== ENCOUNTER 2023-03-06 16:09 | Outpatient (CLI) | payer MEDICARE, SELFPAY ==
[2023-03-06 15:53] LABS: Abs Immature Grans 0.06 10^3/uL (0.0-0.06); Absolute Basophil Count 0.04 10^3/uL (0.0-0.2); Absolute Eosinophil Count 0.08 10^3/uL (0.0-0.7); Absolute Lymphocyte Count 1.14 10^3/uL (1.2-3.4); Absolute Neutrophil Count 8.09 10^3/uL (1.2-6.7); Basophils % 0.4; Eosinophils % 0.8; HCT 46.1 % (40.0-50.0); HGB 15.8 g/dL (13.5-17.5); Immature Grans % 0.6; Lymphocytes % 11.3; MCH 31.5 pg (27.0-33.0); MCHC 34.3 % (32.0-36.0); MCV 92 fL (80-95); MPV 8.7 fL (8.0-11.0); Monocytes % 6.9; Platelet Count 273 10^3/uL (130-400); RBC 5.02 10^6/uL (4.36-5.78); RDW 12.5 % (11.8-14.1); RDW-SD 42.5 fL; WBC 10.11 10^3/uL (4.4-10.8)
[2023-03-06 16:15] LABS: ALT 31 U/L (16-63); AST 19 U/L (15-37); Albumin 4.1 g/dL (3.4-5.0); Alkaline Phosphatase 69 U/L (46-116); Anion Gap 6.9 mmol/L (3-11); BUN 31 mg/dL (7-18); Bilirubin, Total 0.6 mg/dL (0.2-1.0); CO2 26.1 mmol/L (21.0-32.0); Calcium 9.3 mg/dL (8.5-10.1); Chloride 102 mmol/L (98-107); Estimated GFR 76.56 (mL/min/1.73m2); Glucose 143 mg/dL (74-106); Sodium 135 mmol/L (136-145); Total Protein 7.8 g/dL (6.4-8.2); Troponin I < 50 ng/L (<or=60)
[2023-03-06 16:27] LABS: D-Dimer 539 ng/mlFEU (<500)
== END 2023-03-06 16:10 | disposition home or self-care (01) ==
LOC: LBO 16:09
PROVIDERS: PCP Nurse Practitioner Family; Visit Provider Physician Assistant
DX: R55 Syncope and collapse (principal)
CPT/HCPCS: 36415; 80053; 84484; 85025; 85379

== ENCOUNTER 2023-03-13 10:44 | Outpatient (RCR) | payer MEDICARE, SELFPAY ==
--- NOTE | 2023-03-13 10:45 | HOLTER_ITS ---
APPROVED REPORT Conclusion This is a 48-hour Holter monitor ordered for syncope Rhythm throughout was sinus with an average heart rate of 69. Minimum was 40, maximum 106 There were occasional ventricular ectopic beats, rare couplets and triplets There were rare atrial premature beats Several self-limited atrial runs occurred There was no atrial fibrillation, no high-grade AV block, no pauses greater than 3 seconds No patient symptoms were reported
== END 2023-04-10 23:59 | disposition home or self-care (01) ==
LOC: CARDOPNVT 10:44
PROVIDERS: PCP Nurse Practitioner Family; Visit Provider Physician Assistant
DX: R55 Syncope and collapse (principal)
CPT/HCPCS: 93227; 93225; 93226

== ENCOUNTER 2023-04-24 14:07 | Observation (INO) | payer MEDICARE, SELFPAY ==
[2023-04-24] VITALS (37 sets, daily range): BP systolic 161–196; BP diastolic 73–92; PULSE 46–78; RESP 10–30; TEMP 36.1–36.2; O2SAT 94–100
--- NOTE | 2023-04-24 14:00 | RT.EKG_ITS ---
APPROVED REPORT Exam: Resting ECG Reason for Exam: passed out Patient Location: E HR:72 bpm ECG Measurements Heart Rate 72 AXIS AZ 168 P 87 QRSd 195 QRS -41 QT 489 T 61 QTc 534 Conclusion Sinus rhythm...normal P axis, V-rate 60- 99 Multiple ventricular premature complexes...V complexes w/ short R-R intervls Right bundle branch block...QRSd>120, terminal axis(90,270) Probable anterior infarct, age indeterminate...Q >35mS, T neg, V2-V5 Abnormal T, consider ischemia, lateral leads...T <-0.20mV, I aVL V5 V6 LAD, ?OLD INF/ANT FL, ? LBBB, POOR R WAVE PROGRESSION, MORE FREQUENT PVCS THAN PREVIOUS
--- NOTE | 2023-04-24 14:09 | ED.GENADUL_ITS ---
Discharge Plan Disposition Patient Disposition: Admit to [facility] Condition: Good Discharge Details Clinical Impression: Bradycardia, Syncope, Abnormal ECG, Prediabetes, GERD (gastroesophageal reflux disease) Primary Care Provider: Lula Gagnon ED Provider: Nathalia Goddard Home Meds and New Rx's Prescriptions: No Action naproxen sodium [Aleve] 220 mg tablet 220 mg PO DAILY cholecalciferol (vitamin D3) 50 mcg (2,000 unit) capsule 50 mcg PO DAILY multivitamin 1 EACH tablet 1 ea PO DAILY ascorbic acid (vitamin C) 250 MG tablet 750 mg PO DAILY Rx Instructions: 3 TABS DAILY garlic 1 EACH capsule 1 ea PO DAILY omeprazole magnesium [Prilosec OTC] 20 MG tablet,delayed release (DR/EC) 0.5 tab PO QPM Qty: 90 Medical Decision Making This is a 77-year-old male who presents with 2 syncopal episodes within the past 6 weeks. He denies any chest pain headache and has a normal neurologic exam. He does have an abnormal EKG and may have had a silent OR in the past. He may have had a vasovagal reaction to the cold water but in light of his abnormal EKG and intermittent bradycardia here, he will likely require admission for observation. My plan is to obtain blood work including a CBC to check for leukocytosis and anemia. We will check a comprehensive metabolic panel to evaluate his renal function liver function, and electrolytes. He is not on any medications for diabetes and his blood sugar was slightly elevated by fingerstick en route. He tells me he takes Prilosec for heartburn but denies any current heartburn symptoms or chest pain or shortness of breath. He denies any abdominal pain urinary or gastrointestinal symptoms. I will obtain a chest x-ray to evaluate for cardiomegaly and pulmonary infiltrates. I doubt that he aspirated since he has not had any coughing and denies any choking when he fell in the pool. Differential Diagnosis Differential Diagnosis: Syncope, vasovagal, cardiac arrhythmia, GI bleed, ACS, Medical Records Medical records reviewed: Yes I reviewed the patient's medical records. Imaging Data Radiologic Study: Imaging: X-Ray (Chest x-ray PA and lateral) Radiologist's impression: No acute disease Lab Data Lab results reviewed: Yes I reviewed the patient's lab results. Lab results narrative: Normal cardiac enzymes mild hyperglycemia ECG Data Attestation: I personally reviewed and interpreted this ECG (s) as follows: Prior ECG tracings: available for review HPI General Mode of arrival: ambulatory . Date/Time Provider Initiated Documentation: 04/24/23 14:09 . Limitations to Documentation: no limitations . Information obtained by: patient . HPI Narrative: Time seen was 14. Patient is a 77-year-old [id number] male, whose only past medical history is significant for heartburn. He tells me he takes half a dose of Prilosec and has not had any heartburn symptoms lately. He also tells me he is prediabetic a good A1c.His primary care is [facility]. He presents today after a syncopal episode. He tells me that about 40 years ago he had an episode of syncope when he got up in the middle of the night to urinate but initially denied any previous syncopal episode, except for an episode that he had 6 weeks ago. He tells me 6 weeks ago, he jumped into a pool to start swimming (he swims about 6-7 laps every day), he had a syncopal episode which was preceded by few seconds graying out. [employer] had to run from the other end of the pool to reach him and he tells me that by the time the riding coach got to him he was already awake. He denied any coughing or choking but thinks he drank some pool water. He tells me that the pool water was 72 degrees. He followed up at [facility] and had blood work and cardiac monitoring for 2 days. He was told it was normal and no further workup was obtained. Today, he entered the pool and again, today the pool was warmer, about 82 degrees, but after jumping in he had a few seconds graying out, the riding coach jumped in and helped him out of the pool. He denied any chest pain, shortness of breath, headache, before the event. He has chronic intermittent right lower back pain for which he sees a chiropractor every 6 weeks. The pain is located in the right SI joint. He denies any URI symptoms, earache, change in hearing, sore throat neck back or arm pain. He denies any numbness or tingling. He tells me he feels back to normal now. He tells me he has no prior history of coronary artery disease. He believes he had a stress test 20 years ago. He denies any aggravating or alleviating factors. After reviewing his EKG I have informed him that it is not normal possible previous OR's. He denies change in hearing. He does tell me he is scheduled to have a dental cleaning . He is seeing Makenzie at [facility]. Related Data Home Medications Medication Instructions Recorded Confirmed ascorbic acid (vitamin C) 250 mg 750 mg PO DAILY 11/27/12 04/24/23 tablet garlic 1 ea PO DAILY 11/27/12 04/24/23 multivitamin 1 ea PO DAILY 11/27/12 04/24/23 omeprazole magnesium 20 mg 0.5 tab PO QPM ##90 11/27/12 04/24/23 tablet,delayed release (Prilosec OTC) naproxen sodium 220 mg tablet 220 mg PO DAILY 07/02/21 04/24/23 (Aleve) cholecalciferol (vitamin D3) 50 50 mcg PO DAILY 08/08/22 04/24/23 mcg (2,000 unit) capsule Allergies Allergy/AdvReac Type Severity Reaction Status Date / Time No Known Allergies Allergy Verified 03/13/23 14:28 General Stated Complaint: [id number] NINI: 5 Review of Systems Narrative: see hpi PFSH All Active Problems (Updated 04/24/23 @ 16:47 by Nathalia Goddard MD) Abnormal ECG (Acute) Syncope (Chronic) Bradycardia (Acute) Elevated blood pressure reading without diagnosis of hypertension (Chronic) Prediabetes (Chronic) GERD (gastroesophageal reflux disease) (Chronic) Obesity (Chronic) Osteoarthritis (Chronic) Medical History Syncope Basal cell carcinoma (BCC) of left ear Type 2 diabetes mellitus Malignant melanoma of skin Kidney stone (~1968) Surgical History Status post right knee replacement (08/10/15) S/P vasectomy Status post left knee replacement (10/13/19) Family History Mother , 80 Stroke Father , 64 Diabetes Sister Multiple myeloma Daughter No problems noted. Daughter No problems noted. Maternal Grandfather Heart disease Hypertension Maternal Grandmother Heart disease Paternal Grandfather Diabetes Paternal Grandmother Diabetes Dementia Social History Smoking/Tobacco Use Status: Never Smoking risk assessment performed?: Yes Alcohol Intake: current Alcohol Intake frequency: a few times a month Alcohol type: beer and wine Drug use: Never Substance use type: does not use Caregiver/Support person: No Current gender identity: decline to answer What is your relationship status?: refused to answer How often do you talk on the phone with friends or family?: once per week How often do you get together with friends or relatives?: once per week How often do you attend yazidi or christianity services?: decline to answer Do you belong to any clubs or organized social groups?: yes Panel score (0-1 are the most socially isolated patients): 1 What type of physical activity do you participate in: decline to answer Duration: decline to answer Frequency: 3-4 times per week Patti/Oriental Orthodox: No preference Special patti needs: No Seatbelt use: always Drive intox or ride w/intox driver license reviewing officer: No Do you feel safe at home: Yes Do you feel safe in your relationship?: Yes Exam Narrative Exam Narrative: The patient is well-developed well-nourished male who is alert and oriented x 4 with a GCS of 14. His telemetry monitor demonstrated he had intermittent bradycardia with a heart rate in the 40s which lasted less than a minute but recurred several times. Const General: cooperative, healthy appearing, comfortable, no acute distress, well developed, well groomed and well hydrated Nutritional Appearance: average body habitus and well nourished Orientation: alert, awake and oriented x3 [facility] Head: normal to inspection, normocephalic and atraumatic Ears: hearing grossly normal bilaterally and external ears normal General nose exam: external nose normal, nares normal and no nasal discharge Face and sinus: normal facial exam, sinuses nontender and face symmetric Mouth: oral mucosae normal, lip normal, tongue normal, oropharynx normal, moist mucous membranes and other (Normal phonation. The patient is handling secreti ons.) Throat: posterior oropharynx normal and uvula midline Eyes General: appearance normal, both eyes and all related structures Eyelids: eyelids normal Conjunctivae: conjunctivae normal Sclera: sclerae normal Cornea: corneas normal Pupils: PERRL EOM: EOM intact bilaterally and No nystagmus Neck Neck: normal visual inspection, full ROM, no lymphadenopathy, no meningeal signs, trachea midline and supple Lymphatic: no lymphadenopathy noted Chest Chest: normal inspection of the chest Resp Effort & Inspection: normal respiratory effort, able to speak in complete sentences, no audible wheezes, no nasal flaring, no respiratory distress, no retractions, no stridor, not tachypneic, no tracheal deviation, no use of accessory muscles, No prolonged expiratory phase and other (Normal inspiratory to expiratory ratio.) Auscultation: clear to auscultation bilaterally, no rales, no rhonchi, no wheezes and no rubs Tactile Fremitus: tactile fremitus absent Cardio Jugular venous pressure: no JVD Palpation: normal PMI Rate: regular rate Rhythm: regular rhythm Heart Sounds: S1 normal, S2 normal, no gallops, no murmurs and no rubs GI Inspection: normal to inspection and non-distended Palpation: soft, no hepatosplenomegaly, no guarding and nontender Percussion: normal to percussion Auscultation: normal bowel sounds General: No CVA tenderness Back/Spine/Pelvis Back: no CVA tenderness and No back tenderness Cervical Spine: normal cervical lordosis, cervical ROM normal, No cervical muscular tenderness, No pain with cervical ROM, No cervical spinal tenderness and No step off deformity Thoracic/Lumbar Spine: thoracic and lumbar spine normal to inspection, No thoracic spinal tenderness and No lumbar spinal tenderness Pelvis: no pain with anterior-posterior compression and no pain with lateral compression Skin General skin exam: no rashes or lesions noted, turgor normal, no petechiae, no purpura and other (Skin is normal for ethnicity.) Lesions: no lesions Rashes: no rashes Trauma: no lacerations or abrasions Neuro General: patient alert, patient awake, patient oriented x3, moves all extremities, no meningeal signs, no focal motor deficits and CN's II-XI intact bilaterally Cranial Nerves: CN's II-XI intact bilaterally, PERRL, accommodation normal, EOM intact bilaterally, no nystagmus, facial strength normal, tongue midline, hearing normal and no nystagmus Cognition: normal cognition Speech: speech normal Gait: normal gait Motor: muscle tone normal throughout and strength 5/5 throughout Sensory Exam: no sensory deficits noted Plantar Reflexes: Downgoing: bilateral Pupils: Normal pupillary reactivity/response: bilateral Other: No pronator drift. Negative Romberg. Normal speech and gait. Reflexes are 1- 2+ and symmetric in the biceps, brachial radialis patella and ankle jerks. No Babinski's are present. Extrem General: normal to inspection, full ROM, capillary refill normal, no clubbing, cyanosis or edema and no calf tenderness Psych Appearance: grossly normal Affect: normal affect Attitude: cooperative Thought Process: normal Thought Content: normal Insight: insight good Judgment: judgment good Other: The patient appears to have capacity make medical decisions. Course 1603 p.m. I have reviewed the patient's lab work EKG and chest x-ray. I have updated the patient on his lab work. His heart rate has been fluctuating and has dropped to the 40s although he remains asymptomatic. We have paged the hospitalist for admission to telemetry. Reevaluation(s) Initial Evaluation: 1630. I have discussed the case with the hospitalist who has agreed to admit the patient overnight for observation. I have told the patient. I have discussed the patient's CODE STATUS with him and he tells me he is a full code but does not want to be kept on machines for an extended period of time. Lab/Test Results Lab/Test Results: Labs are reassuring. Mild hyperglycemia. Critical Care Time Critical Care Time Critical Care Time: Yes Total Critical Care Time: 42 Attestation: This includes time at the bedside, review of labs and radiographs, review of EKG with comparison to previous EKGs and consultation with hospitalist.
--- NOTE | 2023-04-24 14:30 | DI.RAD_ITS ---
Exam(s) XR CHEST 2V PA LATERAL EXAM: XR CHEST 2V PA LATERAL CLINICAL HISTORY: syncope TECHNIQUE: 2D digital imaging was performed. COMPARISON: No exams were available for comparison FINDINGS: HEART: Normal size. Aorta: Not dilated. Mildly tortuous. PULMONARY VASCULATURE: Normal. LUNGS: Clear. PLEURAL SPACE: No pleural effusion or pneumothorax. BONE:Prominent flowing osteophytes. Soft tissues: Unremarkable. IMPRESSION: No acute abnormality. DATA REPOSITORY: RADIATION DOSE DELIVERED:
[2023-04-24 14:46] LABS: Abs Immature Grans 0.05 10^3/uL (0.0-0.06); Absolute Basophil Count 0.05 10^3/uL (0.0-0.2); Absolute Eosinophil Count 0.17 10^3/uL (0.0-0.7); Absolute Lymphocyte Count 1.08 10^3/uL (1.2-3.4); Absolute Monocyte Count 0.62 10^3/uL (0.1-0.8); Absolute Neutrophil Count 6.32 10^3/uL (1.2-6.7); Basophils % 0.6; Eosinophils % 2.1; HCT 46.8 % (40.0-50.0); HGB 16.8 g/dL (13.5-17.5); Immature Grans % 0.6; MCHC 35.9 % (32.0-36.0); MCV 92 fL (80-95); MPV 9.3 fL (8.0-11.0); Monocytes % 7.5; Neutrophils % 76.2; Platelet Count 295 10^3/uL (130-400); RBC 5.09 10^6/uL (4.36-5.78); RDW 12.4 % (11.8-14.1); RDW-SD 42.5 fL; WBC 8.29 10^3/uL (4.4-10.8)
[2023-04-24 15:09] LABS: ALT 31 U/L (16-63); AST 22 U/L (15-37); Alkaline Phosphatase 70 U/L (46-116); Anion Gap 8.2 mmol/L (3-11); BUN 24 mg/dL (7-18); Bilirubin, Total 0.6 mg/dL (0.2-1.0); CO2 26.8 mmol/L (21.0-32.0); CREATININE 1.1 mg/dL (0.70-1.30); Chloride 102 mmol/L (98-107); Estimated GFR 68.29 (mL/min/1.73m2); Glucose 162 mg/dL (74-106); Potassium 4.3 mmol/L (3.5-5.1); Sodium 137 mmol/L (136-145); TSH 1.28 uIU/mL (0.36-3.74); Total Protein 7.9 g/dL (6.4-8.2); Troponin I < 50 ng/L (<or=60)
[2023-04-24 15:28] LABS: Bilirubin Negative (Negative); Blood Negative (Negative); Clarity Clear (Clear); Glucose Negative (Negative); Ketones Negative (Negative); Leukocyte Esterase Negative (Negative); Nitrite Negative (Negative); Specific Gravity 1.025 (1.005-1.025); Urobilinogen 0.2 mg/dL (Up to 0.2); pH 5.5 (5-8)
[2023-04-24 15:36] LABS: Bacteria Negative HPF (Negative); C & S Indicated? No; Casts Negative LPF (Negative); Crystals Negative HPF (Negative); Epithelial Cells Rare HPF (Negative); Mucus Negative (Negative); RBC Negative HPF (0-2); WBC 0-2 HPF (0-5)
[2023-04-24] MEDS: Normal Saline 1,000 ML 1000 ML IV (16:04)
[2023-04-24 18:25] LABS: Troponin I < 50 ng/L (<or=60)
[2023-04-24] MEDS: Normal Saline Flush 10 ML SYR IVP ×2 (20:23→20:24)
[2023-04-24] MEDS: Omeprazole 20 MG CAPCR PO (20:23)
--- NOTE | 2023-04-24 20:30 | RT.EKG_ITS ---
APPROVED REPORT Exam: Resting ECG Reason for Exam: [facility] Patient Location: I HR:65 bpm ECG Measurements Heart Rate 65 AXIS SD 198 P 70 QRSd 166 QRS -29 QT 459 T 104 QTc 478 Conclusion Sinus rhythm...normal P axis, V-rate 50- 99 Left bundle branch block...QRSd>120, broad/notched R I have reviewed and interpreted ECG and agree with software generated interpretation.
--- NOTE | 2023-04-24 22:11 | W.PM.HP.N ---
Date of service: 04/24/23 Time of Service: 22:11 Assessment and Plan Assessment and plan (1) Syncope: Status: Chronic Assessment and plan: Patient has had 2 witnessed syncopal spells while swimming. First 1 occurring 6 weeks ago while swimming in cold pool water. Subsequent workup included a 48-hour Holter monitor that showed some occasional PACs and PVCs but no advanced heart block and no pauses greater than 3 seconds. Second episode occurred today while swimming in a warm pool. Workup has subsequently shown him to have intermittent third-degree AV block with heart rates into the 30s. Patient clearly needs a temporary pacemaker and possibly a permanent pacemaker. Serology has been obtained for tick panel to rule out Lyme's disease or anaplasmosis. TSH was normal and cardiac troponin levels were normal. Patient is not on any AV nano blocking drugs that could cause iatrogenic heart block. Patient will be transferred to the [facility] to the emergency department to the care of Dr. Dior Schmid, emergency room attending as well as to Dr. Sai Lopez full stack software developer at the [facility]. External pacemaker pad has been applied and pacemaker is available in the room but has not required initiation of pacing at this time. We have no ICU capacity need to transfer the patient within our own institution to the intensive care unit. Qualifiers: Syncope type: unspecified Qualified Code(s): R55 - Syncope and collapse (2) AV block, 3rd degree: Status: Acute Assessment and plan: As above. Rule out infiltrative cardiomyopathy versus tickborne illness versus viral myocarditis versus ischemic heart disease as a cause for his AV conduction problems. History of Present Illness History of Present Illness Chief Complaint: syncope Narrative: 77-year-old male non-smoker with no previous cardiac history who presented to the emergency department today after syncopal spell that occurred while he was swimming in his local college swimming pool. He was immediately brought out of the water by brick mason and had no acute respiratory complications from the syncopal spell. He denied any chest pain or chest pressure or palpitations but did say that he felt like everything was fuzzy when he went out. He had a prior syncopal spell about 6 weeks ago which was then followed up with an outpatient 48-hour Holter which was fairly unremarkable showing sinus rhythm with an average rate of 69 bpm with a minimum of 40 bpm and a maximum of 106 bpm with occasional VPCs and APCs but no runs of ventricular tachycardia or atrial fibrillation or high-grade AV block. Patient was admitted to our medical/surgical floor on observation status after workup in the ER demonstrated an EKG that showed sinus rhythm with a left bundle branch block and his admission labs were fairly unremarkable with a normal CBC normal electrolytes normal kidney and liver function tests and negative troponin levels x 2 sets. TSH was normal at 1.28. After arrival to the medical floor on telemetry he was developing bradycardia with heart rates as low as 38 bpm and demonstrating third-degree AV block. External pacer pads was applied to him but before initiating any pacing he came back into a sinus rhythm. However throughout the evening he is demonstrated intermittent third-degree AV block on his rhythm strips but by the time we obtain a repeat EKG he was back in sinus rhythm with a bundle branch block. Presently he is asymptomatic with systolic pressures in the 170s. Review of his history he does not take any AV nano blocking drugs has no history of hypertension that he is aware of as far as he can recall he has had no recent tick bites. Throughout the summer he would occasionally get a tick on himself but never had one that was attached to him for any prolonged period. he denies any rashes. He has some chronic arthralgias in his hands that he occasionally takes Naprosyn. He takes Prilosec daily for symptoms of GERD. There has been no family history of sudden cardiac . 2 family members have had pacemakers. One was his maternal grandmother in her 90s. The other one was in his younger sister who has multiple myeloma. I faxed his EKG and rhythm strips to [facility] and requested transfer to cardiology services. I was told by [facility] that they are not accepting any transfers tonight. The earliest they would list for would be for tomorrow and I would have to call back tomorrow. I proceeded to call [facility] and discussed his case with Dr. Sai Lopez from cardiology. I explained to Dr. Lopez that we have no cardiology services as her full stack software developer is out on sick leave and none of her surgeons put in pacers. Review of Systems All systems reviewed & are unremarkable except as noted in HPI and below Cardiovascular Cardiovascular: Reports as per HPI PFSH All Active Problems (Updated 04/24/23 @ 22:30 by Mariusz Hassan MD) AV block, 3rd degree (Acute) Abnormal ECG (Acute) Syncope (Chronic) Bradycardia (Acute) Elevated blood pressure reading without diagnosis of hypertension (Chronic) Prediabetes (Chronic) GERD (gastroesophageal reflux disease) (Chronic) Obesity (Chronic) Osteoarthritis (Chronic) Medical History Syncope Basal cell carcinoma (BCC) of left ear Type 2 diabetes mellitus Malignant melanoma of skin Kidney stone (~1968) Surgical History Status post right knee replacement (08/10/15) S/P vasectomy Status post left knee replacement (10/13/19) Family History Mother , 80 Stroke Father , 64 Diabetes Sister Multiple myeloma Daughter No problems noted. Daughter No problems noted. Maternal Grandfather Heart disease Hypertension Maternal Grandmother Heart disease Paternal Grandfather Diabetes Paternal Grandmother Diabetes Dementia Social History Smoking/Tobacco Use Status: Never Smoking risk assessment performed?: Yes Alcohol Intake: current Alcohol Intake frequency: a few times a month Alcohol type: beer and wine Drug use: Never Substance use type: does not use Caregiver/Support person: No Housing: house Current gender identity: decline to answer What is your relationship status?: refused to answer How often do you talk on the phone with friends or family?: once per week How often do you get together with friends or relatives?: once per week How often do you attend jainism or jewish services?: decline to answer Do you belong to any clubs or organized social groups?: yes Panel score (0-1 are the most socially isolated patients): 1 What type of physical activity do you participate in: decline to answer Duration: decline to answer Frequency: 3-4 times per week Patti/Congregational: No preference Special patti needs: No Seatbelt use: always Drive intox or ride w/intox snaker tractor driver: No Do you feel safe at home: Yes Do you feel safe in your relationship?: Yes Meds Allergies and Home Medications Allergies Allergy/AdvReac Type Severity Reaction Status Date / Time No Known Allergies Allergy Verified 03/13/23 14:28 Home Medications Medication Instructions Recorded Confirmed Type ascorbic acid (vitamin C) 250 mg 750 mg PO DAILY 11/27/12 04/24/23 History tablet garlic 1 ea PO DAILY 11/27/12 04/24/23 History multivitamin 1 ea PO DAILY 11/27/12 04/24/23 History omeprazole magnesium 20 mg 0.5 tab PO QPM ##90 11/27/12 04/24/23 History tablet,delayed release (Prilosec OTC) naproxen sodium 220 mg tablet 220 mg PO DAILY 07/02/21 04/24/23 History (Aleve) cholecalciferol (vitamin D3) 50 50 mcg PO DAILY 08/08/22 04/24/23 History mcg (2,000 unit) capsule Exam Narrative Exam Narrative: Obese balding, bearded, elderly male who appears younger than his stated age of 77 he is alert and oriented person place time circumstance. HEENT is unremarkable Neck is supple no JVD, Carotid pulses without bruits rate is bradycardic Lungs are clear to auscultation Heart sounds to be regular but bradycardic no appreciable murmur Abdomen obese soft nontender no bruits no organomegaly Extremities without peripheral cyanosis or edema, he has TKA scars over both knees Neuro: grossly normal strength, sensation, no CN deficits Results Labs 04/24/23 14:22 04/24/23 14:22 Labs: Laboratory Results - last 24 hr 04/24/23 04/24/23 04/24/23 14:22 15:18 17:56 WBC 8.29 RBC 5.09 Hgb 16.8 Hct 46.8 MCV 92 MCH 33.0 MCHC 35.9 RDW 12.4 Plt Count 295 MPV 9.3 Immature Gran % 0.6 Neutrophils % 76.2 Lymphocytes % 13.0 Monocytes % 7.5 Eosinophils % 2.1 Basophils % 0.6 Nucleated RBC % 0.0 Absolute Neutrophils 6.32 Absolute Lymphocytes 1.08 L Absolute Monocytes 0.62 Absolute Eosinophils 0.17 Absolute Basophils 0.05 Sodium 137 Potassium 4.3 Chloride 102 Carbon Dioxide 26.8 Anion Gap 8.2 BUN 24 H Creatinine 1.1 Est GFR (CKD-EPI 2020) 68.29 Glucose 162 H Calcium 9.0 Magnesium 2.0 Total Bilirubin 0.6 AST 22 ALT 31 Alkaline Phosphatase 70 Troponin I < 50 < 50 Total Protein 7.9 Albumin 4.0 TSH 1.28 Urine Color Yellow Urine Clarity Clear Urine pH 5.5 Ur Specific [place] 1.025 Urine Protein 30 H Urine Ketones Negative Urine Blood Negative Urine Nitrite Negative Urine Bilirubin Negative Urine Urobilinogen 0.2 Ur Leukocyte Esterase Negative Urine RBC Negative Urine WBC 0-2 Ur Epithelial Cells Rare Urine Crystals Negative Urine Bacteria Negative Urine Casts Negative Urine Mucus Negative Ur Culture Indicated? No Urine Glucose Negative Last Vital Signs Temp 36.2 C L 04/24/23 20:02 Pulse 71 04/24/23 20:02 Resp 18 04/24/23 20:02 BP 178/82 H 04/24/23 20:02 Pulse Ox 96 04/24/23 20:02 PAWSS Have you Been Recently Intoxicated or Drunk Within the Last 30 days?: No Have you Ever Experienced Previous Episodes of Alcohol Withdrawal?: No Have you ever Experienced Withdrawal Seizures?: No Have you ever Experienced Delirium Tremens(DT)s?: No Have you ever undergone Alcohol Rehabilitation Treatment (i.e, inpt ot outpatient treatment programs)?: No Have you ever Experienced Blackouts?: No Have you ever Combined Alcohol with other Downers within the last 90 days?: No Have you ever Combined Alcohol with any other Substance of Abuse during the last 90 days?: No Positive Blood Alcohol level on Presentation? [PCS.BAL]: No Evidence of Increased Autonomic Activity (i.e. HR>120, tremor, sweating, agitation, nausea)?: No Result: 0 Time Spent Time spent with Patient: 55-74 minutes Time was spent: preparing to see the patient(eg.review tests), obtaining and/or [facility], ordering medications,tests, procedures, referring, communicating with other health rn home care ([facility] cardiology and [facility] emergency room attending as well as [facility] transfer center), indepentently interpreting results, counseling the patient and care coordination
[2023-04-24 22:27] LABS: Troponin I < 50 ng/L (<or=60)
--- NOTE | 2023-04-24 22:52 | W.PM.DS.N ---
Date of service: 04/24/23 Time of Service: 22:52 DS: Diagnosis Discharge Diagnosis (1) Syncope: Status: Chronic (2) AV block, 3rd degree: Status: Acute Discharge Plan Disposition Patient Disposition: Transfer-Acute Inpatient Care Specific Acute Inpt Facility: [facility] Condition: Serious Discharge Details Reason For Visit: syncope Admit Date/Time: 04/24/23 16:51 Admit Provider: Mariusz Hassan Attending Provider: Mariusz Hassan Primary Care Provider: Lula Gagnon Hospital Course Hospital Course: 77-year-old non-smoker who has been relatively healthy swims on a regular basis a quarter a mile at least 3 times a week who had a syncopal spell about 6 weeks ago and had a subsequent 48-hour Holter that was fairly unremarkable except for some occasional APCs and PVCs but no ventricular tachycardia or SVT or atrial fibrillation and no heart block. Subsequently had a syncopal spell today while swimming and was witnessed by general production laborer who assisted him out of the water. Patient had no acute respiratory complications from the and water syncopal spell. Subsequent workup in the emergency department included unremarkable CBC CMP normal TSH normal troponin levels and EKG showed sinus rhythm with left bundle branch block with frequent PVCs. Subsequent telemetry monitoring demonstrated third-degree AV block with heart rates in the high 30s to low 40s. AV block was intermittent and at other times he was in sinus bradycardia with a left bundle branch block. Patient is currently asymptomatic. As we have no cardiology services here at [facility] and no ICU capacity and no qualified person to place a temporary pacemaker the patient is being transferred out to the [facility] care of Dr. Sai Lopez cardiology as well as to the ED department under the care of Dr. Dior Schmid. I previously attempted to reach out to [facility] and was told by the transfer center that they have no capacity and cannot accept the patient tonight. Patient is willing to go to [facility] for further cardiology evaluation and placement of a pacemaker. A tick antibody panel was sent off and is pending at this time. Home Meds and New Rx's Prescriptions: Continued naproxen sodium [Aleve] 220 mg tablet 220 mg PO DAILY cholecalciferol (vitamin D3) 50 mcg (2,000 unit) capsule 50 mcg PO DAILY multivitamin 1 EACH tablet 1 ea PO DAILY ascorbic acid (vitamin C) 250 MG tablet 750 mg PO DAILY Rx Instructions: 3 TABS DAILY garlic 1 EACH capsule 1 ea PO DAILY omeprazole magnesium [Prilosec OTC] 20 MG tablet,delayed release (DR/EC) 0.5 tab PO QPM Qty: 90 Discharge Instructions Instructions: Heart Block (DC) Referrals: Sai Jorgensen [ [facility] STAFF PHYSICIAN] - Activity:: Activity as Tolerated Equipment/Supplies:: No Equipment Needed Diet:: As Tolerated Discharge Orders Discharge Orders: Discharge Order (Routine); Ordered 04/24/23 Ordered By: Mariusz Hassan DS: Summary Time Spent with Patient providing and/or coordinating discharge services: Greater than 30 minutes Specific discharge activities: Interview/exam of patient, educating patient and/or family about need for transfer and alternative treatment options, coordination of transfer w/ receiving facility and discussion of case w/ accepting provider(s), completion of transfer orders and discharge summary Status at Discharge Functional status at discharge: independent ambulation Overall status at discharge: patient is not back to baseline Mental Status: mental status grossly normal Speech and Movement: speech and movement normal Mood: congruent mood Affect: normal affect Exam Narrative Exam Narrative: Obese balding, bearded, elderly male who appears younger than his stated age of 77 he is alert and oriented person place time circumstance. HEENT is unremarkable Neck is supple no JVD, Carotid pulses without bruits rate is bradycardic Lungs are clear to auscultation Heart sounds to be regular but bradycardic no appreciable murmur Abdomen obese soft nontender no bruits no organomegaly Extremities without peripheral cyanosis or edema, he has TKA scars over both knees Neuro: grossly normal strength, sensation, no CN deficits Psych Mental Status: mental status grossly normal Speech and Movement: speech and movement normal Mood: congruent mood Affect: normal affect DS: Data Vitals/I&O Vitals and I&O: Vital Signs Temperature 36.1 C L 04/24/23 22:39 Temperature Source Tympanic 04/24/23 22:39 Pulse 71 04/24/23 22:39 Pulse 63 04/24/23 19:20 Respiratory Rate 20 04/24/23 22:39 Respiratory Effort Normal, Non-Labored 04/24/23 20:02 Respiratory Depth Normal 04/24/23 20:02 Respiratory Pattern Normal 04/24/23 20:02 Blood Pressure 196/92 H 04/24/23 22:39 Blood Pressure Mean 114 04/24/23 17:02 Blood Pressure Position Sitting 04/24/23 14:12 Pulse Oximetry 98 04/24/23 22:39 Oxygen Delivery Method Room Air 04/24/23 22:39 Oxygen Flow Rate 0 04/24/23 22:39 Pain Level 0 04/24/23 20:02 Comment manual B/P 190/100 04/24/23 22:39 Intake & Output 04/23/23 04/24/23 04/24/23 23:59 11:59 23:59 Weight 95.708 kg Other: Urine Color Yellow Urine Appearance Clear Voiding Methods Toilet Data Completed and Pending Labs on day of discharge: Labs from last 24 hours 04/24/23 04/24/23 04/24/23 22:03 17:56 15:18 WBC RBC Hgb Hct MCV MCH MCHC RDW Plt Count MPV Immature Gran % Neutrophils % Lymphocytes % Monocytes % Eosinophils % Basophils % Nucleated RBC % Absolute Neutrophils Absolute Lymphocytes Absolute Monocytes Absolute Eosinophils Absolute Basophils Sodium Potassium Chloride Carbon Dioxide Anion Gap BUN Creatinine Est GFR (CKD-EPI 2020) Glucose Calcium Magnesium Total Bilirubin AST ALT Alkaline Phosphatase Troponin I < 50 < 50 Total Protein Albumin TSH Urine Color Yellow Urine Clarity Clear Urine pH 5.5 Ur Specific [place] 1.025 Urine Protein 30 H Urine Ketones Negative Urine Blood Negative Urine Nitrite Negative Urine Bilirubin Negative Urine Urobilinogen 0.2 Ur Leukocyte Esterase Negative Urine RBC Negative Urine WBC 0-2 Ur Epithelial Cells Rare Urine Crystals Negative Urine Bacteria Negative Urine Casts Negative Urine Mucus Negative Ur Culture Indicated? No Urine Glucose Negative B. divergens/MO-1 PCR Pending Babesia duncani (PCR) Pending Babesia microti DNA PCR Pending Lyme Disease Antibody Pending E.chaffeensis DNA (PCR) Pending E.ewingii/canis DNA PCR Pending E.muris eauclairensis (PCR) Pending A. phagocytophilum (PCR) Pending Blood B. miyamotoi (PCR) Pending 04/24/23 14:22 WBC 8.29 RBC 5.09 Hgb 16.8 Hct 46.8 MCV 92 MCH 33.0 MCHC 35.9 RDW 12.4 Plt Count 295 MPV 9.3 Immature Gran % 0.6 Neutrophils % 76.2 Lymphocytes % 13.0 Monocytes % 7.5 Eosinophils % 2.1 Basophils % 0.6 Nucleated RBC % 0.0 Absolute Neutrophils 6.32 Absolute Lymphocytes 1.08 L Absolute Monocytes 0.62 Absolute Eosinophils 0.17 Absolute Basophils 0.05 Sodium 137 Potassium 4.3 Chloride 102 Carbon Dioxide 26.8 Anion Gap 8.2 BUN 24 H Creatinine 1.1 Est GFR (CKD-EPI 2020) 68.29 Glucose 162 H Calcium 9.0 Magnesium 2.0 Total Bilirubin 0.6 AST 22 ALT 31 Alkaline Phosphatase 70 Troponin I < 50 Total Protein 7.9 Albumin 4.0 TSH 1.28 Urine Color Urine Clarity Urine pH Ur Specific [place] Urine Protein Urine Ketones Urine Blood Urine Nitrite Urine Bilirubin Urine Urobilinogen Ur Leukocyte Esterase Urine RBC Urine WBC Ur Epithelial Cells Urine Crystals Urine Bacteria Urine Casts Urine Mucus Ur Culture Indicated? Urine Glucose B. divergens/MO-1 PCR Babesia duncani (PCR) Babesia microti DNA PCR Lyme Disease Antibody E.chaffeensis DNA (PCR) E.ewingii/canis DNA PCR E.muris eauclairensis (PCR) A. phagocytophilum (PCR) Blood B. miyamotoi (PCR) [facility] All Active Problems AV block, 3rd degree (Acute) Abnormal ECG (Acute) Syncope (Chronic) Bradycardia (Acute) Elevated blood pressure reading without diagnosis of hypertension (Chronic) Prediabetes (Chronic) GERD (gastroesophageal reflux disease) (Chronic) Obesity (Chronic) Osteoarthritis (Chronic) Medical History Syncope Basal cell carcinoma (BCC) of left ear Type 2 diabetes mellitus Malignant melanoma of skin Kidney stone (~1967) Surgical History Status post right knee replacement (08/10/15) S/P vasectomy Status post left knee replacement (10/13/19) Family History Mother , 80 Stroke Father , 64 Diabetes Sister Multiple myeloma Daughter No problems noted. Daughter No problems noted. Maternal Grandfather Heart disease Hypertension Maternal Grandmother Heart disease Paternal Grandfather Diabetes Paternal Grandmother Diabetes Dementia Social History Smoking/Tobacco Use Status: Never Smoking risk assessment performed?: Yes Alcohol Intake: current Alcohol Intake frequency: a few times a month Alcohol type: beer and wine Drug use: Never Substance use type: does not use Caregiver/Support person: No Housing: house Current gender identity: decline to answer What is your relationship status?: refused to answer How often do you talk on the phone with friends or family?: once per week How often do you get together with friends or relatives?: once per week How often do you attend druze or bahai services?: decline to answer Do you belong to any clubs or organized social groups?: yes Panel score (0-1 are the most socially isolated patients): 1 What type of physical activity do you participate in: decline to answer Duration: decline to answer Frequency: 3-4 times per week Patti/Presybeterian: No preference Special patti needs: No Seatbelt use: always Drive intox or ride w/intox trailer driver: No Do you feel safe at home: Yes Do you feel safe in your relationship?: Yes Time Spent with Patient Time Spent with Patient: 45-69 minutes Time was spent: preparing to see the patient(eg.review tests), obtaining and/or reviewing separately otained hiistory, ordering medications,tests, procedures, referring, communicating with other health resident care manager rn (Discussion with [facility] transfer center, discussion with [facility] transfer center, discussion with [facility] cardiology and emergency department), indepentently interpreting results, counseling the patient and care coordination
--- NOTE | 2023-04-25 16:52 | NUR.NOTE ---
Accessed chart to determine orders for EKG and to determine whether or not one needs to be cancelled. Duplicate order cancelled. Nursing Note:
[2023-04-27 23:03] LABS: Anaplasma phagocytophilum Negative (Negative); B. miyamotoi PCR Negative (Negative); Babesia divergens/MO-1 Negative (Negative); Babesia duncani Negative (Negative); Babesia microti Negative (Negative); Ehrlichia chaffeensis Negative (Negative); Ehrlichia ewingii/canis Negative (Negative); Ehrlichia muris eauclairensis Negative (Negative)
[2023-04-28 11:40] LABS: Lyme Ab w Rflx to Lyme Confirm Negative (Negative)
== END 2023-04-24 23:08 | disposition short-term general hospital (02) ==
LOC: ER 16:47 → MS 19:32
PROVIDERS: Admitting Provider Internal Medicine; Emergency Provider Emergency Medicine Emergency Medical Services; PCP Nurse Practitioner Family; Visit Provider Internal Medicine
DX: I44.2 Atrioventricular block, complete (principal); R55 Syncope and collapse; K21.9 Gastro-esophageal reflux disease without esophagitis; E66.9 Obesity, unspecified; E11.9 Type 2 diabetes mellitus without complications; R94.31 Abnormal electrocardiogram [ECG] [EKG]; I44.7 Left bundle-branch block, unspecified; Z68.30 Body mass index [BMI] 30.0-30.9, adult
CPT/HCPCS: 00123; 36415; 36416; 80053; 82962; 87798; 93005; 96360; 99291; 71046; 81003; 81015; 83735; 84443; 84484; 85025; 86618; 93010; G0378

== ENCOUNTER 2023-06-17 17:05 | Emergency (ER) | payer MEDICARE, SELFPAY ==
[2023-06-17] VITALS (7 sets, daily range): BP systolic 157–204; BP diastolic 59–74; PULSE 70–90; RESP 15–23; O2SAT 100
[2023-06-17 17:30] LABS: Abs Immature Grans 0.63 10^3/uL (0.0-0.06); HCT 38.5 % (40.0-50.0); MCH 30.8 pg (27.0-33.0); MCHC 33.8 % (32.0-36.0); MCV 91 fL (80-95); MPV 9.4 fL (8.0-11.0); Platelet Count 392 10^3/uL (130-400); RBC 4.22 10^6/uL (4.36-5.78); RDW 13.8 % (11.8-14.1); RDW-SD 46.5 fL; WBC 11.91 10^3/uL (4.4-10.8)
[2023-06-17] MEDS: Normal Saline 1,000 ML 1000 ML IV (17:33)
[2023-06-17 17:56] LABS: ALT 92 U/L (16-63); AST 51 U/L (15-37); Albumin 2.6 g/dL (3.4-5.0); Alkaline Phosphatase 214 U/L (46-116); Anion Gap 10.6 mmol/L (3-11); BUN 16 mg/dL (7-18); Bilirubin, Total 1.1 mg/dL (0.2-1.0); CO2 24.4 mmol/L (21.0-32.0); Calcium 8.7 mg/dL (8.5-10.1); Chloride 100 mmol/L (98-107); Estimated GFR 76.56 (mL/min/1.73m2); Glucose 303 mg/dL (74-106); Lipase 58 U/L (16-77); Magnesium 1.8 mg/dL (1.8-2.4); NT-proBNP 1746 pg/mL (<300); Potassium 3.7 mmol/L (3.5-5.1); Sodium 135 mmol/L (136-145); Total Protein 7.5 g/dL (6.4-8.2); Troponin I < 50 ng/L (< or =60)
[2023-06-17 17:58] LABS: Absolute Basophil Count 0.24 10^3/uL (0.0-0.2); Absolute Monocyte Count 0.36 10^3/uL (0.1-0.8); Diff Comment Manual Differential; Promyelocytes % 1; RBC Morphology Normal
--- NOTE | 2023-06-17 18:00 | DI.RAD_ITS ---
Exam(s) XR PORTABLE CHEST AP EXAM: XR PORTABLE CHEST AP CLINICAL HISTORY: cough. TECHNIQUE: 2D digital imaging was performed. COMPARISON: CR XR CHEST 2V PA LATERAL from 04/24/2023 FINDINGS: Single AP portable view. There has been interval placement of a left subclavian bipolar pacemaker lead tips in RA and right ve ntricle. Heart size is upper normal. The mediastinum is not widened. There increased markings both lung bolivar but this is probably exaggerated by poor inspiratory effort . There does not appear to be evidence of pulmonary edema and there are no obvious pleural effusions . No pneumothorax. IMPRESSION: As above. Recommend nonportable PA and lateral views when clinically possible. DATA REPOSITORY: RADIATION DOSE DELIVERED:
--- NOTE | 2023-06-17 18:00 | RT.EKG_ITS ---
APPROVED REPORT Exam: Resting ECG Reason for Exam: fatigue Patient Location: E HR:71 bpm ECG Measurements Heart Rate 71 AXIS NE 60 P 204 QRSd 141 QRS 21 QT 414 T 141 QTc 451 Conclusion Atrial-ventricular dual-paced rhythm I have reviewed and interpreted ECG and agree with software generated interpretation.
[2023-06-17 18:09] LABS: Bilirubin Negative (Negative); Blood Trace-lysed (Negative); Clarity Clear (Clear); Glucose 500 mg/dL (Negative); Ketones Negative (Negative); Leukocyte Esterase Negative (Negative); Nitrite Negative (Negative); Specific Gravity 1.025 (1.005-1.025); Urobilinogen 0.2 mg/dL (Up to 0.2); pH 5.5 (5-8)
[2023-06-17 18:19] LABS: Bacteria Rare HPF (Negative); Epithelial Cells Negative HPF (Negative); RBC 0-2 HPF (0-2); WBC 0-2 HPF (0-5)
[2023-06-17 18:20] LABS: C & S Indicated? No; Casts 0-2 Coarse Granular LPF (Negative); Crystals Negative HPF (Negative); Mucus Negative (Negative)
--- NOTE | 2023-06-17 19:15 | NUR.NOTE ---
Faxed to [facility], requisition for Echo Cardiogram mello, patient instructed to call [facility] scheduling number in am. Will f/u with [facility] Cardiology. Nursing Note:
--- NOTE | 2023-06-17 19:24 | NUR.NOTE ---
Referral to Care Management to refer to [facility] Cardiology for f/u after Echo Cardiogram.Nursing Note:
[2023-06-17 19:25] LABS: Hemoglobin A1C 6.7 % (<5.7)
--- NOTE | 2023-06-17 21:12 | ED.GENADUL_ITS ---
HPI General Date/Time Provider Initiated Documentation: 06/17/23 17:08 . Limitations to Documentation: no limitations . Information obtained by: patient . HPI Narrative: 77-year-old gentleman with past medical history of elevated blood pressures, prediabetes sick sinus, status post pacemaker placement presents for evaluation of elevated blood sugar. Patient reports that for the last week he has not been feeling very well having some fatigue and bodyaches. A little bit a nonproductive cough. Eating and drinking normally. Denies any increased urination or increased thirst. He has been having a dry mouth. He denies any chest pain, shortness of breath, dyspnea on exertion or orthopnea. Related Data Home Medications Medication Instructions Recorded Confirmed ascorbic acid (vitamin C) 250 mg 750 mg PO DAILY 11/27/12 06/17/23 tablet garlic 1 ea PO DAILY 11/27/12 06/17/23 multivitamin 1 ea PO DAILY 11/27/12 06/17/23 omeprazole magnesium 20 mg 0.5 tab PO QPM ##90 11/27/12 06/17/23 tablet,delayed release (Prilosec OTC) cholecalciferol (vitamin D3) 50 50 mcg PO DAILY 08/08/22 06/17/23 mcg (2,000 unit) capsule metformin 500 mg tablet 500 mg PO BIDWMEAL #60 tabs 06/17/23 Previous Rx's Medication Instructions Recorded metformin 500 mg tablet 500 mg PO BIDWMEAL #60 tabs 06/17/23 Allergies Allergy/AdvReac Type Severity Reaction Status Date / Time No Known Allergies Allergy Verified 06/17/23 17:29 General Stated Complaint: GenMedical NINI: 3 Exam Narrative Exam Narrative: Review of Systems: All systems reviewed & are unremarkable except as noted in HPI and below Well-developed, no acute distress NCAT PERRL, normal conjunctiva RRR, no murmur. Pacer in place Unlabored respiratory effort, no hypoxia, clear breath sounds, no crackles at the bases Nondistended abdomen , nontender Extremities w/o deformity, no cyanosis, no edema No rashes or lesions. no focal neurologic deficits Appropriate mood and affect Course Vital Signs Vital signs: Vital Signs Pulse 90 06/17/23 17:11 Respiratory Rate 21 06/17/23 17:11 Blood Pressure 204/70 H 06/17/23 17:11 Pulse Oximetry 100 06/17/23 17:11 Temperature Source Oral 06/17/23 17:11 Pulse 71 06/17/23 17:31 Pulse 71 06/17/23 17:40 Respiratory Rate 16 06/17/23 17:40 Respiratory Effort Normal, Non-Labored 06/17/23 17:29 Respiratory Depth Normal 06/17/23 17:29 Respiratory Pattern Normal 06/17/23 17:29 Blood Pressure 157/59 H 06/17/23 17:31 Blood Pressure Mean 92 06/17/23 17:31 Blood Pressure Position Sitting 06/17/23 17:11 Pulse Oximetry 100 06/17/23 17:11 Oxygen Delivery Method Room Air 06/17/23 17:11 Oxygen Flow Rate 0 06/17/23 17:11 Pain Level 0 06/17/23 17:11 Lab/Test Results Lab/Test Results: Laboratory Tests Range/Units 06/17/23 06/17/23 17:23 18:02 WBC (4.4-10.8) 10^3/uL 11.91 H RBC (4.36-5.78) 10^6/uL 4.22 L Hgb (13.5-17.5) g/dL 13.0 L Hct (40.0-50.0) % 38.5 L MCV (80-95) fL 91 MCH (27.0-33.0) pg 30.8 MCHC (32.0-36.0) % 33.8 RDW (11.8-14.1) % 13.8 Plt Count (130-400) 10^3/uL 392 MPV (8.0-11.0) fL 9.4 Immature Gran % See Differential Neutrophils % 84.0 Lymphocytes % 5.0 Monocytes % 3.0 Eosinophils % 5.0 Basophils % 2.0 Promyelocytes % 1 Nucleated RBC % (0.0-0.3) % 0.0 Absolute Neutrophils (1.2-6.7) 10^3/uL 10.00 H Absolute Lymphocytes (1.2-3.4) 10^3/uL 0.60 L Absolute Monocytes (0.1-0.8) 10^3/uL 0.36 Absolute Eosinophils (0.0-0.7) 10^3/uL 0.60 Absolute Basophils (0.0-0.2) 10^3/uL 0.24 H RBC Morphology Normal Sodium (136-145) mmol/L 135 L Potassium (3.5-5.1) mmol/L 3.7 Chloride (98-107) mmol/L 100 Carbon Dioxide (21.0-32.0) mmol/L 24.4 Anion Gap (3-11) mmol/L 10.6 BUN (7-18) mg/dL 16 Creatinine (0.70-1.30) mg/dL 1.0 Est GFR (CKD-EPI 2020) (mL/min/1.73m2) 76.56 Glucose (74-106) mg/dL 303 H Hemoglobin A1c (<5.7) % 6.7 H Calcium (8.5-10.1) mg/dL 8.7 Magnesium (1.8-2.4) mg/dL 1.8 Total Bilirubin (0.2-1.0) mg/dL 1.1 H AST (15-37) U/L 51 H ALT (16-63) U/L 92 H Alkaline Phosphatase (46-116) U/L 214 H Troponin I (< or =60) ng/L < 50 NT-Pro-B Natriuret Pep (<300) pg/mL 1746 H Total Protein (6.4-8.2) g/dL 7.5 Albumin (3.4-5.0) g/dL 2.6 L Lipase (16-77) U/L 58 Urine Color (Yellow) Yellow Urine Clarity (Clear) Clear Urine pH (5-8) 5.5 Ur Specific [place] (1.005-1.025) 1.025 Urine Protein (Negative) mg/dL Trace H Urine Ketones (Negative) mg/dL Negative Urine Blood (Negative) Trace-lysed H Urine Nitrite (Negative) Negative Urine Bilirubin (Negative) Negative Urine Urobilinogen (Up to 0.2) mg/dL 0.2 Ur Leukocyte Esterase (Negative) Negative Urine RBC (0-2) HPF 0-2 Urine WBC (0-5) HPF 0-2 Ur Epithelial Cells (Negative) HPF Negative Urine Crystals (Negative) HPF Negative Urine Bacteria (Negative) HPF Rare Urine Casts (Negative) LPF 0-2 Coarse Granular Urine Mucus (Negative) Negative Ur Culture Indicated? No Urine Glucose (Negative) mg/dL 500 H Medical Decision Making Emergent evaluation of hyperglycemia. Patient has not been feeling well for the last week. At urgent care he was noted to have a lot of glucose in his urine and an elevated blood sugar. He came to the emergency department for further evaluation. He has a history of prediabetes and has not been medicated for many years. Initial differential includes viral illness, dehydration, electrolyte derangement, new onset diabetes. Patient's blood pressure was noted to be initially elevated, this is improved during his stay in the emergency department. Lab work reviewed. Mild leukocytosis, no significant anemia. Patient is noted to have an elevated glucose, but no concerning derangement for DKA or hyperosmolar ketotic syndrome. His A1c is noted to be elevated. He does have some slight elevation in his LFTs and total bilirubin. He does not have any liver tenderness on exam. He denies alcohol use or excessive Tylenol use. His BNP is noted to be slightly elevated. I have no priors for comparison. He reports that he did get an echocardiogram with [facility] when he had his pacemaker placed and said that at that time it was normal. He has no signs of acute heart failure or volume overload. I am suspicious that his LFT derangement may be secondary to his heart failure. Chest x-ray obtained, there is no obvious pulmo nary edema or pleural effusion. I discussed options with the patient regarding hospitalization for echocardiogram possible diuresis and medical optimization versus doing this as an outpatient. Patient is essentially asymptomatic and would like to go home. He feels that he is able to have close follow-up. An outpatient echocardiogram has been ordered. Strict return precautions have been advised. I recommend that at this time the patient start metformin. Prescription has been ordered for this. He can follow-up with his PCP to continue to monitor this and determine if the patient would be a better candidate for insulin initiation. His blood pressure was also slightly elevated, but normalized in the emergency department. I will not start blood pressure medication but I have recommended that he keep a blood pressure log so that when he follows up with his PCP he can present this information and decide if he may benefit from starting blood pressure medication. Return precautions a dvised. Discharged in stable condition. Medical Records Medical records reviewed: Yes I reviewed the patient's medical records. Lab Data Lab results reviewed: Yes I reviewed the patient's lab results. Quality:SDOH Health Related Social Needs: No Data to Display PFSH All Active Problems Blood glucose elevated (Acute) Elevated brain natriuretic peptide (BNP) level (Acute) Presence of permanent cardiac pacemaker (Acute 04/25/23) 05/22/23 for HB at [facility] Elevated blood pressure reading without diagnosis of hypertension (Chronic) Prediabetes (Chronic) GERD (gastroesophageal reflux disease) (Chronic) Obesity (Chronic) Osteoarthritis (Chronic) Medical History AV block, 3rd degree S/p PPM Syncope Basal cell carcinoma (BCC) of left ear Type 2 diabetes mellitus Malignant melanoma of skin Kidney stone (~1968) Surgical History Status post right knee replacement (08/10/15) S/P vasectomy Status post left knee replacement (10/13/19) Family History Mother , 80 Stroke Father , 64 Diabetes Sister Multiple myeloma Daughter No problems noted. Daughter No problems noted. Maternal Grandfather Heart disease Hypertension Maternal Grandmother Heart disease Paternal Grandfather Diabetes Paternal Grandmother Diabetes Dementia Social History Smoking/Tobacco Use Status: Never Smoking risk assessment performed?: Yes Alcohol Intake: current Alcohol Intake frequency: a few times a month Alcohol type: beer and wine Drug use: Never Substance use type: does not use Caregiver/Support person: No Housing: house Current gender identity: decline to answer What is your relationship status?: refused to answer How often do you talk on the phone with friends or family?: once per week How often do you get together with friends or relatives?: once per week How often do you attend nondenominational or buddhism services?: decline to answer Do you belong to any clubs or organized social groups?: yes Panel score (0-1 are the most socially isolated patients): 1 What type of physical activity do you participate in: decline to answer Duration: decline to answer Frequency: 3-4 times per week Patti/Restorationism: No preference Special patti needs: No Seatbelt use: always Drive intox or ride w/intox speedboat driver: No Do you feel safe at home: Yes Do you feel safe in your relationship?: Yes Discharge Plan Disposition Patient Disposition: Home Condition: Stable Discharge Details Clinical Impression: Elevated brain natriuretic peptide (BNP) level, Blood glucose elevated, Elevated blood pressure reading without diagnosis of hypertension Primary Care Provider: Lula Gagnon ED Provider: Gladis Sparks Home Meds and New Rx's Prescriptions: New metformin 500 mg tablet 500 mg PO BIDWMEAL Qty: 60 0RF No Action cholecalciferol (vitamin D3) 50 mcg (2,000 unit) capsule 50 mcg PO DAILY multivitamin 1 EACH tablet 1 ea PO DAILY ascorbic acid (vitamin C) 250 MG tablet 750 mg PO DAILY Rx Instructions: 3 TABS DAILY garlic 1 EACH capsule 1 ea PO DAILY omeprazole magnesium [Prilosec OTC] 20 MG tablet,delayed release (DR/EC) 0.5 tab PO QPM Qty: 90 Discharge Instructions Instructions: Diabetic Hyperglycemia (ED) Additional Instructions: Start metformin twice daily. Keep a log of your blood sugar. Your BNP is slightly elevated today which is concerning for possible worsening of your heart function. An outpatient echo has been ordered. If you develop chest pain, significant weight gain, shortness of breath that is worse with exertion or shortness of breath when laying flat please follow-up with the emergency department or your primary care provider Keep a log of your blood pressure. It was slightly elevated today. Take this log to your primary care doctor for reevaluation and possible initiation of medication Please follow-up with your PCP within the week for reevaluation of all of the symptoms.
== END 2023-06-17 19:18 | disposition home or self-care (01) ==
PROVIDERS: Emergency Provider Emergency Medicine; PCP Nurse Practitioner Family
DX: R50.9 Fever, unspecified (principal); R05.9 Cough, unspecified; R79.89 Other specified abnormal findings of blood chemistry; R73.9 Hyperglycemia, unspecified; R03.0 Elevated blood-pressure reading, without diagnosis of hypertension; Z95.0 Presence of cardiac pacemaker
CPT/HCPCS: 80053; 83690; 93005; 96360; 99284; 71045; 81003; 81015; 83036; 83735; 83880; 84484; 85025; 93010

== ENCOUNTER → 2023-06-20 01:31 | Outpatient (CLI) | payer MEDICARE, SELFPAY ==
--- NOTE | 2023-06-20 07:45 | DI.US_ITS ---
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 Other Information Study Quality: Fair Conclusion Normal chamber sizes Normal LV function, EF 55-60%. Normal RV function. Device lead in right heart Normal valves without significant regurgitation or stenosis. No pericardial effusion. Wall motion Left Ventricle The left ventricle is normal size. The left ventricular systolic function is preserved. The left vent ricular ejection fraction is within the normal range. There is normal left ventricular wall thickness . Paradoxical septal motion consistent with paced rhythm. Diastolic indices are indeterminate. There is no ventricular septal defect visualized. LVEF is 55-60%. Right Ventricle The right ventricle is normal size. The right ventricular systolic function is normal. There is alicia l right ventricular wall thickness. Pacemaker lead is present in the right ventricle. Atria The left atrium size is normal. The right atrium size is normal. Pacemaker lead is present in the rig ht atrium. Unable to rule out trivial PFO. 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 Aortic Valve Aortic valve is trileaflet. Aortic valve leaflets are mildly thickened. There is no aortic valvular s tenosis. No aortic regurgitation is present. Mitral Valve The mitral valve is normal in structure. No evidence of mitral valve stenosis. Trace mitral regurgita tion. Tricuspid Valve The tricuspid valve is normal in structure. There is no tricuspid valve stenosis. Trace tricuspid reg urgitation. The RVSP is 30 mmHg. Pulmonic Valve The pulmonary valve is normal in structure. There is no pulmonic valvular stenosis. Trace pulmonic re gurgitation. Great Vessels The aortic root is normal in size. The pulmonary artery is normal. The ascending aorta is normal in s ize. Descending aorta is normal in caliber. Aortic arch is normal in caliber. IVC is normal in size a nd collapses >50% with inspiration. Pericardium There is no pericardial effusion. Prominent epicardial fat pad noted.
== END ==
PROVIDERS: PCP Nurse Practitioner Family; Visit Provider Nurse Practitioner Family
DX: R06.02 Shortness of breath (principal)
CPT/HCPCS: 93306

== ENCOUNTER 2023-07-02 08:59 | Outpatient (CLI) | payer MEDICARE, SELFPAY ==
--- NOTE | 2023-07-02 08:45 | RT.EKG_ITS ---
APPROVED REPORT Exam: Resting ECG Reason for Exam: of [facility] Patient Location: O HR:77 bpm ECG Measurements Heart Rate [address] 143 P 74 QRSd 129 QRS 13 QT 379 T 176 QTc 429 Conclusion Atrial-ventricular dual-paced rhythm No further analysis attempted due to paced rhythm
== END 2023-07-02 09:00 | disposition home or self-care (01) ==
LOC: DI.CARD 09:01
PROVIDERS: PCP Nurse Practitioner Family; Visit Provider Physician Assistant
DX: Z95.0 Presence of cardiac pacemaker (principal)
CPT/HCPCS: 93010

== ENCOUNTER → 2023-07-02 09:56 | Outpatient (BNVA) | payer MEDICARE, SELFPAY | PROVIDERS: PCP Nurse Practitioner Family; Referring Provider Nurse Practitioner Family; Visit Provider Physician Assistant | DX: I44.39 Other atrioventricular block (principal); Z95.0 Presence of cardiac pacemaker | CPT/HCPCS: 93005; 93280 ==

== ENCOUNTER 2023-07-16 04:53 | Outpatient (CLI) | payer MEDICARE, SELFPAY ==
[2023-07-16 12:25] LABS: Abs Immature Grans 0.04 10^3/uL (0.0-0.06); Absolute Basophil Count 0.06 10^3/uL (0.0-0.2); Absolute Eosinophil Count 0.34 10^3/uL (0.0-0.7); Absolute Lymphocyte Count 1.22 10^3/uL (1.2-3.4); Absolute Neutrophil Count 6.52 10^3/uL (1.2-6.7); Basophils % 0.7; Eosinophils % 3.9; HCT 41.7 % (40.0-50.0); HGB 13.9 g/dL (13.5-17.5); Immature Grans % 0.5; Lymphocytes % 13.9; MCH 30.9 pg (27.0-33.0); MCHC 33.3 % (32.0-36.0); MCV 93 fL (80-95); MPV 9.3 fL (8.0-11.0); Monocytes % 6.8; Neutrophils % 74.2; Platelet Count 361 10^3/uL (130-400); RDW-SD 43.8 fL; WBC 8.78 10^3/uL (4.4-10.8)
[2023-07-16 12:55] LABS: ALT 26 U/L (16-63); AST 16 U/L (15-37); Albumin 3.3 g/dL (3.4-5.0); Alkaline Phosphatase 79 U/L (46-116); Anion Gap 7.4 mmol/L (3-11); BUN 17 mg/dL (7-18); Bilirubin, Total 0.5 mg/dL (0.2-1.0); CO2 28.6 mmol/L (21.0-32.0); Calcium 8.9 mg/dL (8.5-10.1); Chloride 104 mmol/L (98-107); Estimated GFR 76.56 (mL/min/1.73m2); Glucose 199 mg/dL (74-106); NT-proBNP 278 pg/mL (<300); Potassium 4.1 mmol/L (3.5-5.1); Sodium 140 mmol/L (136-145); Total Protein 7.4 g/dL (6.4-8.2)
== END 2023-07-16 04:54 | disposition home or self-care (01) ==
LOC: LOS 04:53
PROVIDERS: PCP Nurse Practitioner Family; Visit Provider Nurse Practitioner Family
DX: R79.89 Other specified abnormal findings of blood chemistry (principal)
CPT/HCPCS: 36415; 80053; 83880; 85025

== ENCOUNTER 2023-09-24 05:11 | Outpatient (CLI) | payer MEDICARE, SELFPAY ==
[2023-09-24 12:32] LABS: Calculated LDL 84 mg/dL (<100); Cholesterol 151 mg/dL (<200); HDL Cholesterol 43 mg/dL (40-60); Triglyceride 123 mg/dL (<150)
[2023-09-24 13:03] LABS: Hemoglobin A1C 6.7 % (<5.7)
[2023-09-24 20:03] LABS: PSA, Screening 3.3 ng/mL (<=6.5)
[2023-09-25 11:37] LABS: Hepatitis C Ab w Rflx HCV PCR Negative (Negative)
== END 2023-09-24 05:12 | disposition home or self-care (01) ==
LOC: LOS 05:12
PROVIDERS: PCP Nurse Practitioner Family; Visit Provider Nurse Practitioner Family
DX: E11.9 Type 2 diabetes mellitus without complications (principal); Z00.00 Encounter for general adult medical examination without abnormal findings; Z12.5 Encounter for screening for malignant neoplasm of prostate
CPT/HCPCS: 36415; 80061; 84153; 86803; 83036

== ENCOUNTER → 2023-12-31 13:01 | Outpatient (BNVA) | payer MEDICARE, SELFPAY | PROVIDERS: PCP Nurse Practitioner Family; Referring Provider Nurse Practitioner Family; Visit Provider Student in an Organized Health Care Education/Training Program | DX: Z95.810 Presence of automatic (implantable) cardiac defibrillator (principal); I44.2 Atrioventricular block, complete | CPT/HCPCS: 93280 ==

== ENCOUNTER 2024-03-12 12:07 | Outpatient (REF) | payer MEDICARE, SELFPAY ==
[2024-03-12 18:14] LABS: COMMENT (LAB VIEW ONLY) 74.62 mg/dL; Microalb ug/mg Crea 89.8 ug/mg Cr
== END 2024-03-12 12:08 | disposition home or self-care (01) ==
LOC: LBN 12:07
PROVIDERS: PCP Nurse Practitioner Family; Visit Provider Nurse Practitioner Family
DX: E11.9 Type 2 diabetes mellitus without complications (principal)
CPT/HCPCS: 82043; 82570

== ENCOUNTER 2024-09-07 00:30 | Outpatient (CLI) | payer MEDICARE, SELFPAY ==
[2024-09-07 13:12] LABS: ALT 31 U/L (16-63); AST 19 U/L (15-37); Albumin 3.7 g/dL (3.4-5.0); Alkaline Phosphatase 79 U/L (46-116); Anion Gap 7.7 mmol/L (3-11); BUN 21 mg/dL (7-18); Bilirubin, Total 0.7 mg/dL (0.2-1.0); CO2 28.3 mmol/L (21.0-32.0); Calcium 9.1 mg/dL (8.5-10.1); Chloride 105 mmol/L (98-107); Estimated GFR 76.08 (mL/min/1.73m2); Glucose 165 mg/dL (74-106); Hemoglobin A1C 7.3 % (<5.7); Potassium 4.2 mmol/L (3.5-5.1); Sodium 141 mmol/L (136-145); Total Protein 7.5 g/dL (6.4-8.2)
[2024-09-07 13:28] LABS: Bilirubin Negative (Negative); Blood Negative (Negative); COMMENT (LAB VIEW ONLY) 131.93 mg/dL; Clarity Clear (Clear); Glucose Negative (Negative); Ketones Negative (Negative); Leukocyte Esterase Negative (Negative); Microalb ug/mg Crea 64.9 ug/mg Cr; Nitrite Negative (Negative); Specific Gravity 1.025 (1.005-1.025); Urobilinogen 0.2 mg/dL (Up to 0.2); pH 5.5 (5-8)
[2024-09-07 13:49] LABS: Bacteria Negative HPF (Negative); C & S Indicated? No; Casts Negative LPF (Negative); Crystals Negative HPF (Negative); Epithelial Cells Rare HPF (Negative); Mucus Negative (Negative); RBC 0-2 HPF (0-2); WBC Negative HPF (0-5)
[2024-09-07 19:22] LABS: HBs Antibody, Quant <3.1 mIU/mL (See Note); Hep B Surface Ab Negative (See Note); Hepatitis B Core Antibody Negative (Negative); Hepatitis B Surface Antigen Negative (Negative)
[2024-09-07 19:26] LABS: HIV-1/2 Ag & Ab Screen Negative (Negative)
== END 2024-09-07 00:31 | disposition home or self-care (01) ==
LOC: LOS 00:30
PROVIDERS: PCP Nurse Practitioner Family; Visit Provider Nurse Practitioner Family
DX: R73.03 Prediabetes (principal); R80.9 Proteinuria, unspecified; Z11.59 Encounter for screening for other viral diseases; Z11.4 Encounter for screening for human immunodeficiency virus [HIV]
CPT/HCPCS: 36415; 80053; 86704; 86706; 87340; 87389; 81003; 81015; 82043; 82570; 83036

== ENCOUNTER 2024-12-29 07:51 | Outpatient (CLI) | payer MEDICARE, SELFPAY ==
--- NOTE | 2024-12-29 07:45 | RT.EKG_ITS ---
APPROVED REPORT Exam: Resting ECG Reason for Exam: AV block Patient Location: O HR:95 bpm ECG Measurements Heart Rate 95 AXIS RI 93 P [id number] QRSd 124 QRS 12 QT 369 T 189 QTc 464 Conclusion A-V dual-paced rhythm with some inhibition...atrial and/or vent inhibition No further analysis attempted due to paced rhythm
== END 2024-12-29 07:52 | disposition home or self-care (01) ==
LOC: DI.CARD 07:52
PROVIDERS: PCP Nurse Practitioner Family; Visit Provider Student in an Organized Health Care Education/Training Program
DX: I44.2 Atrioventricular block, complete (principal)
CPT/HCPCS: 93010

== ENCOUNTER → 2024-12-29 12:59 | Outpatient (BNVA) | payer MEDICARE, SELFPAY | PROVIDERS: PCP Nurse Practitioner Family; Visit Provider Student in an Organized Health Care Education/Training Program | DX: I44.2 Atrioventricular block, complete (principal); Z45.018 Encounter for adjustment and management of other part of cardiac pacemaker | CPT/HCPCS: 93005; 93280 ==